=== PATIENT | male | born 1980 | race Caucasian/White ===

== ENCOUNTER 2016-09-01 20:01 | Emergency (ER) | payer OTHER ==
[2016-09-01 20:21] VITALS: BP 163/102; PULSE 100; TEMP 98.7; BMI 43.0
--- NOTE | 2016-09-01 21:59 | PDOC ---
History of Present Illness - General Chief Complaint: Redness To Affected Area Stated Complaint: RIGHT RING FINGERNAIL INFECTION Time Seen by Provider: 09/01/16 20:35 - History of Present Illness Initial Comments: This 35-year-old man with a history of diverticulitis but no other significant issues, presents with several-day history of progressive pain and swelling in the area around the fingernail of his right ring finger. Patient has a history of biting his nails and has had cuticle infections in the past but has never needed antibiotics or drainage of the area. A few days ago, patient noted swelling and redness around right fourth fingernail. He soaked it in warm water but noted increasing pain and whitish coloration of the area today. Patient has no history of wound healing problems or immunocompromised. He denies resistant organism infection or colonization. 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 Patient is right hand dominant. He denies current medications ALLERGIES: Ciprofloxacin/shellfish Past History - Past Medical History Allergies/Adverse Reactions: Allergies Allergy/AdvReac Type Severity Reaction Status Date / Time ciprofloxacin [From Cipro] Allergy Intermediate Nausea Verified 09/01/16 20:03 ciprofloxacin HCl Allergy Intermediate Nausea Verified 09/01/16 20:03 [From Cipro] Shellfish Allergy Swelling Verified 09/01/16 20:03 Home Medications: Ambulatory Orders Clindamycin [Cleocin -] 300 mg PO TID #15 capsule 09/01/16 GI Disorders: Yes (DIVERTICULITIS) - Immunization History Immunization Up to Date: Yes - Psycho/Social/Smoking Cessation Hx Anxiety: No Suicidal Ideation: No Smoking Status: No Smoking History: Never smoked Have you smoked in the past 12 months: No Number of Cigarettes Smoked Daily: 0 Hx Alcohol Use: No Drug/Substance Use Hx: No Substance Use Type: None Review of Systems - Review of Systems Able to Perform ROS?: Yes Comments:: 12 point review of systems is negative except for what is noted in the history of present illness *Physical Exam - Vital Signs Last Vital Signs Temp Pulse Resp BP Pulse Ox 98.7 F 100 H 18 163/102 99 09/01/16 20:02 09/01/16 20:02 09/01/16 20:02 09/01/16 20:02 09/01/16 20:02 - Physical Exam Comments: GENERAL: Adult male, alert and oriented 3, in no acute distress HEAD: Normal with no signs of trauma. EYES: PERRLA, EOMI, sclera anicteric, conjunctiva clear. ENT: Ears normal, nares patent, oropharynx clear without exudates. Moist mucous membranes. NECK: Normal range of motion, supple without lymphadenopathy, JVD, or masses. LUNGS: Breath sounds equal, clear to auscultation bilaterally. No wheezes, and no crackles. HEART:Regular rate and rhythm, normal S1 and S2 without murmur, rub or gallop. ABDOMEN:.normal bowel sounds No guarding,tenderness or rebound.No masses No distention. EXTREMITIES: Right handring finger: Moderately tender, moderately fluctuant 1 cm region of the ulnar aspect of the emmanuelle-ungual area. No pain on passive or active movement of the finger; no lymphangitic streaking Extremity exam otherwise normal NEUROLOGICAL: Cranial nerves II through XII grossly intact. Normal speech. No focal neurological deficits. MUSCULOSKELETAL: Back non-tender to palpation, no CVA tenderness SKIN: Warm, Dry, normal turgor, no rashes or lesions noted. Procedures - Incision and Drainage I&D Site: Right: Paronychia (ring finger) Betadine cleansed: No (Hibiclens/ethanol) Anesthesia: 1% Lidocaine Volume(ml): 1 Blade Size: 11 Attempts: 1 Iodinated Packin/4 in Complications: none Dressing: Yes (sterile gauze/tube dressing) Progress: Area around paronychia cleansed with Hibiclens/abdominal; one at mL of 1% lidocaine infiltrated into the wound for anesthesia. Incision made with #11 blade with moderate purulent discharge followed by serosanguineous drainage. Wound irrigated with 20 mL of sterile normal saline and wound packed with quarter-inch iodinated packing. Sample of drainage sent for culture and sensitivity testing. Sterile gauze dressing applied to the wound followed by tube dressing; patient tolerated procedure well Medical Decision Making - Medical Decision Making As noted above this 35-year-old man with with no history of immunocompromise or resistant organism colonization/infection presents with paronychia of the right ring finger. Incision and drainage proceeded as noted above. The patient works in [employer] as a helicopter officer. He will be covered for MRSA organisms with clindamycin 300 mg 3 times a day for 5 days. Care of the wound discussed with the patient. He will take the packing out on september 03, approximately 36 hours after incision and drainage. After that, he should soak the area and use protective dressing as needed. The patient should not work tomorrow. He has the following days off and will restart work on September 07. *DC/Admit/Observation/Transfer Diagnosis at time of Disposition: Paronychia of right ring finger - Discharge Dispostion Disposition: HOME Condition at time of disposition: Stable - Prescriptions Prescriptions: Clindamycin [Cleocin -] 300 mg PO TID #15 capsule - Referrals Referrals: Fausto Saeed MD [Primary Care Provider] - 1 week - Patient Instructions Printed Discharge Instructions: DI for Paronychia Additional Instructions: Keep original dressing in place, dry, for the next 36 hours Can remove packing with original dressing on Friday() a.m. Soak finger in warm water twice a day for 3 days after removing dressing Can use protective Band-Aid as needed in finger Clindamycin 300 mg 3 times a day for 5 days No work until September 07 Return to ER if area becomes more swollen/painful/red Follow-up with Dr. Cespedes within 1 week - Post Discharge Activity Work/School Note: Back to Work
[2016-09-01] MEDS ORDERED: CLINDAMYCIN HCL 300 MG CAPSULE PO ONE (22:50)
[2016-09-01] MEDS ORDERED: CLINDAMYCIN HCL 150 MG CAPSULE (FP) ONE (22:53)
[2016-09-01] MEDS ORDERED: DIPHTH,PERTUSS(ACELL),TET 0.5 ML DISP.SYRIN IM ONE (22:55)
== END 2016-09-01 23:01 | disposition home or self-care (01) ==
LOC: FER 20:01
PROC: 3E0233Z Introduction of Anti-inflammatory into Muscle, Percutaneous Approach (ICD-10-PCS; principal; 2016-09-01)
PROC: 3E023NZ Introduction of Analgesics, Hypnotics, Sedatives into Muscle, Percutaneous Approach (ICD-10-PCS; 2016-09-01)
DX: M54.32 Sciatica, left side (principal); G89.29 Other chronic pain
CPT/HCPCS: 87070; 87186; 87205; 90715; 99281-25

== ENCOUNTER 2016-12-16 18:49 | Emergency (ER) | payer OTHER ==
[2016-12-16 18:57] VITALS: PULSE 91; TEMP 98.7; BMI 43.8
--- NOTE | 2016-12-16 19:00 | PDOC ---
History of Present Illness - General History Source: Patient Exam Limitations: No Limitations - History of Present Illness Initial Comments: 12/16/16 19:24 The patient is a 36 year old male, with no significant past medical history, who presents to the emergency department complaining of a sore throat for approximately 2 days. The patient reports his throat pain radiates into his ears. He reports a TMax of 101.4F approximately 2 days ago. Patient reports he is concerned he has strep, because his niece was diagnosed with it today. He denies any chills, cough, headache, or dizziness. He denies chest pain, shortness of breath, diaphoresis, or palpitations. He denies any recent travel. PAST MEDICAL HISTORY: no significant history PAST SURGICAL HISTORY: no significant history FAMILY HISTORY: no pertinent history SOCIAL HISTORY: Pt lives with family and is employed. Non smoker. No ETOH or drug use. MEDICATIONS: reviewed ALLERGIES: Ciprofloxacin, ciproflixacin HCl, Shellfish General: Yes: +fever. No chills, no weakness, no weight loss HEENT: Yes: +sore throat, +ear pain. No change in vision. CardioVascular: No chest pain or shortness of breath Respiratory:No cough, or wheezing. Gastrointestinal: no nausea, vomiting, diarrhea or constipation, No rectal bleeding Genitourinary: No dysuria, hematuria, or frequency Musculoskeletal: No joint or muscle pain or swelling Neurologic: No headache, vertigo, dizziness or loss of consciousness Psychiatric: nor depression Skin: No rashes or easy bruising Endocrine: no increased thirst or abnormal weight change Allergic: no skin or latex allergy All other systems reviewed and normal GENERAL: The patient is awake, alert, and fully oriented, in no acute distress. HEAD: Normal with no signs of trauma. EYES: Pupils equal, round and reactive to light, extraocular movements intact, sclera anicteric, conjunctiva clear. THROAT: Erythema of the posterior nasopharynx. No exudates noted. Bilateral submandibular lymphadenopathy Tonsils normal. NECK: Bilateral submandibular lymphadenopathy Supple, no meningeal signs CHEST: Nontender to palpation EXTREMITIES: Normal range of motion, no edema. NEUROLOGICAL: Normal speech, normal gait. PSYCH: Normal mood, normal affect. SKIN: Warm, Dry, normal turgor, no rashes or lesions noted. <Brock Olguin - Last Filed: 12/16/16 19:24> - General History Source: Patient Exam Limitations: No Limitations - History of Present Illness Initial Comments: 12/16/16 19:42 A portion of this note was documented by scribe services under my direction. I have reviewed the details of the note, within reason, and agree with the documentation. The case summary and management plan written by me. Assessment and plan: This is a 36-year-old male who comes in complaining of 2 days of fever and sore throat. Patient had a rapid strep done here in the emergency room that was negative for strep pharyngitis. Patient was given a diagnosis of viral pharyngitis and told to follow-up with his primary care doctor but also use infectious precautions as he has an infant child at home and even if it's viral it is contagious. <Rebeca Moran I - Last Filed: 12/16/16 19:43> - General Chief Complaint: Sore Throat Stated Complaint: SORE THROAT Time Seen by Provider: 12/16/16 18:59 Past History <Brock Olguin - Last Filed: 12/16/16 19:24> - Past Medical History GI Disorders: Yes (DIVERTICULITIS) - Immunization History TDAP Vaccination: No Immunization Up to Date: Yes - Psycho/Social/Smoking Cessation Hx Anxiety: No Suicidal Ideation: No Smoking Status: No Smoking History: Never smoked Have you smoked in the past 12 months: No Number of Cigarettes Smoked Daily: 0 Information on smoking cessation initiated: No Hx Alcohol Use: (occasional) Drug/Substance Use Hx: No Substance Use Type: None <Rebeca Moran I - Last Filed: 12/16/16 19:43> - Past Medical History Allergies/Adverse Reactions: Allergies Allergy/AdvReac Type Severity Reaction Status Date / Time ciprofloxacin [From Cipro] Allergy Intermediate Nausea Verified 12/16/16 19:22 ciprofloxacin HCl Allergy Intermediate Nausea Verified 12/16/16 19:22 [From Cipro] Shellfish Allergy Swelling Verified 12/16/16 19:22 Home Medications: Ambulatory Orders Ibuprofen 600 mg PO ASDIR PRN 12/16/16 *Physical Exam - Vital Signs Last Vital Signs Temp Pulse Resp BP Pulse Ox 98.7 F 91 H 18 168/100 97 12/16/16 18:50 12/16/16 18:50 12/16/16 18:50 12/16/16 19:12 12/16/16 18:50 <Brock Olguin - Last Filed: 12/16/16 19:24> - Vital Signs Last Vital Signs Temp Pulse Resp BP Pulse Ox 98.7 F 91 H 18 179/110 97 12/16/16 18:50 12/16/16 18:50 12/16/16 18:50 12/16/16 18:50 12/16/16 18:50 <Rebeca Moran I - Last Filed: 12/16/16 19:43> ED Treatment Course - ADDITIONAL ORDERS Additional order review: 12/16/16 19:04 Group A Strep Rapid Antigen - Final Throat <Brock Olguin - Last Filed: 12/16/16 19:24> *DC/Admit/Observation/Transfer - Attestations Scribe Attestion: 12/16/16 19:24 Documentation prepared by Brock Olguin, acting as bilingual medical assistant for Rebeca Moran MD. <Brock Olguin - Last Filed: 12/16/16 19:24> - Discharge Dispostion Admit: No <Rebeca Moran I - Last Filed: 12/16/16 19:43> Diagnosis at time of Disposition: Viral pharyngitis - Discharge Dispostion Disposition: HOME Condition at time of disposition: Stable - Referrals Referrals: Fausto Saeed MD [Primary Care Provider] - - Patient Instructions Additional Instructions: your screen for strep was negative however there is still a has ability that the culture could come back positive. The culture will take approximately 2 days to come back. In the meantime assume that you may be infectious even if it is a viral pharyngitis and take it necessary precautions. Return to the emergency department immediately with ANY new, persistent or worsening symptoms. Continue any medications as previously prescribed by your physician. You should follow up with your primary doctor as soon as possible regarding today's emergency department visit. . Please make sure your doctor reviews the results of your emergency evaluation. Thank you for coming to the Emergency Department today for your care. It was a pleasure to see you today. Please note that your evaluation is INCOMPLETE until you follow-up with your doctor.
[2016-12-16 19:13] VITALS: BP 168/100
== END 2016-12-16 19:40 | disposition home or self-care (01) ==
LOC: FER 18:49
DX: J02.8 Acute pharyngitis due to other specified organisms (principal); B97.89 Other viral agents as the cause of diseases classified elsewhere; K57.92 Diverticulitis of intestine, part unspecified, without perforation or abscess without bleeding
CPT/HCPCS: 87070; 87430; 99282-25

== ENCOUNTER 2018-05-02 15:23 | Emergency (ER) | payer OTHER ==
[2018-05-02 15:26] VITALS: BMI 43.4
--- NOTE | 2018-05-02 15:34 | PDOC ---
History of Present Illness - General Chief Complaint: Cold Symptoms Stated Complaint: SINUS CONGESTION Time Seen by Provider: 05/02/18 15:32 History Source: Patient Exam Limitations: No Limitations Past History - Past Medical History Allergies/Adverse Reactions: Allergies Allergy/AdvReac Type Severity Reaction Status Date / Time ciprofloxacin [From Cipro] Allergy Intermediate Nausea Verified 05/02/18 15:23 ciprofloxacin HCl Allergy Intermediate Nausea Verified 05/02/18 15:23 [From Cipro] Shellfish Allergy Swelling Verified 05/02/18 15:23 Home Medications: Ambulatory Orders Amox-Tr/K Cl [Augmentin - 875Mg Tablet] 1 tab PO BID #14 tablet 05/02/18 Fluticasone Prop 0.05% Nasal [Flonase -] 1 - 2 spray NS DAILY #1 spray.pump Lisinopril [Prinivil] 10 mg PO DAILY 05/02/18 Loratadine [Claritin -] 10 mg PO DAILY #30 tablet 05/02/18 Meclizine HCl [Dramamine Less Drowsy] 25 mg PO DAILY PRN #14 tablet 05/02/18 Methylprednisolone [Medrol Dose Eduardo] 4 mg PO ASDIR #21 tablet 05/02/18 Metoprolol Succinate [Toprol Xl] 25 mg PO DAILY 05/02/18 COPD: No GI Disorders: Yes (DIVERTICULITIS) - Immunization History TDAP Vaccination: No Immunization Up to Date: Yes - Suicide/Smoking/Psychosocial Hx Smoking Status: No Smoking History: Never smoked Have you smoked in the past 12 months: No Number of Cigarettes Smoked Daily: 0 Hx Alcohol Use: Yes (ONCE A MONTH) Drug/Substance Use Hx: No Substance Use Type: None *Physical Exam - Vital Signs Last Vital Signs Temp Pulse Resp BP Pulse Ox 0/0 L 05/02/18 15:23 Moderate Sedation - Procedure Monitoring Vital Signs: Procedure Monitoring Vital Signs Temperature Pulse Rate Respiratory Rate Blood Pressure 0/0 L 05/02/18 15:23 O2 Sat by Pulse Oximetry (%) *DC/Admit/Observation/Transfer Diagnosis at time of Disposition: Sinusitis Qualifiers: Sinusitis location: unspecified location Chronicity: unspecified Qualified Code (s): J32.9 - Chronic sinusitis, unspecified - Discharge Dispostion Disposition: HOME Condition at time of disposition: Stable - Prescriptions Prescriptions: Amox-Tr/K Cl [Augmentin - 875Mg Tablet] 1 tab PO BID #14 tablet Fluticasone Prop 0.05% Nasal [Flonase -] 1 - 2 spray NS DAILY #1 spray.pump Loratadine [Claritin -] 10 mg PO DAILY #30 tablet Meclizine HCl [Dramamine Less Drowsy] 25 mg PO DAILY PRN #14 tablet PRN Reason: Vertigo Methylprednisolone [Medrol Dose Eduardo] 4 mg PO ASDIR #21 tablet - Referrals [place] [facility] [place] [facility] [place]] Michael Nation MD [Staff Physician] - - Patient Instructions Printed Discharge Instructions: DI for Sinusitis Additional Instructions: you were seen for sinusitis. please take your medications prescribed to you as directed. please follow up with your primary medical doctor or the Internal medicine group referred to you within 1 week after discharge. please follow up with the ENT physician Dr. Nation within 1 week for follow up care and management. please return to the emergency department if you have worsening symptoms or new concerning symptoms such as uncontrollable nausea and vomiting, focal neurological deficits, and fever/chills with neck stiffness. thank you. - Post Discharge Activity Forms/Work/School Notes: Back to Work
--- NOTE | 2018-05-02 15:35 | PDOC ---
Attending Attestation - Resident Resident Name: Emerson Johnson - ED Attending Attestation I have performed the following: I have examined & evaluated the patient, The case was reviewed & discussed with the resident, I agree w/resident's findings & plan - HPI HPI: 05/02/18 15:35 37 up F here c/o cough cold like sxs and nasal congestions. states he had a cough and congestion few weeks ago. cough impoved, but congestions got worse. also describing a vertigo sensation earlier today when yawning, heard a pop in ear felt vertigo and nausea. yesterday had with head turning quickly. no f/c no cough now. no rash. has not seen an ENT recently but many years ago he did. no change to speech or gait. no other complaints. 05/02/18 16:06 - Physicial Exam PE: 05/02/18 16:08 awake alert lungs clear bilaterally heart rrr no mrg. bilat sinus turbinate enlargement, right sinus tenderness. bilat TM with serous effusion. nuero alert oriented x 3. finger to nose normal. strength 5/5. skin warm and dry. negative romberg. gait normal speech clear. - Medical Decision Making 05/02/18 16:10 differential sinus congestion. allergic vs. viral and secondary sinusitis. due to prolonged course. will treat with augmenetin, steroids, and meclizine for vertigo. will refer to [facility] DR Nation for ENT. recomend flonase and claritin also.
[2018-05-02] MEDS ORDERED: LORATADINE 10 MG TABLET PO ONE (15:51)
[2018-05-02] MEDS ORDERED: LORATADINE 10 MG TABLET ONE (15:52)
[2018-05-02] MEDS ORDERED: IBUPROFEN 600 MG TABLET (FP) PO ONE ×2 (15:52→15:54)
[2018-05-02 15:58] VITALS: BP 148/93; PULSE 84; TEMP 97.7
[2018-05-02] MEDS ORDERED: MECLIZINE HCL 25 MG TABLET (FP) PO ONE (16:04)
[2018-05-02] MEDS ORDERED: MECLIZINE HCL 25 MG TABLET (FP) ONE (16:06)
[2018-05-02] MEDS ORDERED: PSEUDOEPHEDRINE HCL 30 MG TABLET ONE (16:06)
[2018-05-02] MEDS ORDERED: PSEUDOEPHEDRINE HCL 30 MG TABLET PO ONE (16:15)
== END 2018-05-02 16:38 | disposition home or self-care (01) ==
LOC: FER 15:23
DX: J32.9 Chronic sinusitis, unspecified (principal)
CPT/HCPCS: 99281-25

== ENCOUNTER 2018-07-16 09:01 | Inpatient (IN) | payer OTHER ==
[2018-07-03 10:21] VITALS: BMI 41.5
--- NOTE | 2018-07-16 08:03 | HP ---
Admitting History and Physical - Admission Chief Complaint: left hip osteoarthritis x years History of Present Illness: 37 year old male presents in regard to his left hip. Long-standing history of left hip osteoarthritis. Patient complains of pain, limited range of motion, difficulty ambulating, and difficulty with activities of daily living. Patient has failed conservative treatment options including PO medications, activity modification, injections, and exercise programs. At this point, patient like to proceed with surgical intervention-left total hip arthroplasty MAKOplasty. - Past Medical History Cardiovascular: Yes: HTN - Past Surgical History Additional Past Surgical History: See written history and physical. - Smoking History Smoking history: Never smoked Have you smoked in the past 12 months: No Aproximately how many cigarettes per day: 0 - Alcohol/Substance Use Hx Alcohol Use: Yes (ONCE A MONTH) Home Medications - Allergies Allergies/Adverse Reactions: Allergies Allergy/AdvReac Type Severity Reaction Status Date / Time ciprofloxacin [From Cipro] Allergy Intermediate Nausea Verified 07/03/18 10:09 ciprofloxacin HCl Allergy Intermediate Nausea Verified 07/03/18 10:09 [From Cipro] Shellfish Allergy Swelling Verified 07/03/18 10:09 - Home Medications Home Medications: Ambulatory Orders Lisinopril [Prinivil] 10 mg PO DAILY 05/02/18 Meclizine HCl [Dramamine Less Drowsy] 25 mg PO DAILY PRN #14 tablet 05/02/18 Metoprolol Succinate [Toprol Xl] 25 mg PO DAILY 05/02/18 Diclofenac Sodium 75 mg PO BID 07/03/18 Hydrocodone/Acetaminophen [Hydrocodone-Acetamin 5-325 mg] 2 each PO HS PRN 07/03 Ibuprofen 600 mg PO ASDIR PRN 07/03/18 Review of Systems - Review of Systems Musculoskeletal: reports: Decreased ROM (left hip), Joint Pain (left hip) Physical Examination Constitutional: Yes: Well Nourished, No Distress Eyes: Yes: Conjunctiva Clear HENT: Yes: Atraumatic Neck: Yes: Supple Cardiovascular: Yes: Regular Rate and Rhythm Respiratory: Yes: Regular Gastrointestinal: Yes: Soft ...Rectal Exam: Yes: Deferred Musculoskeletal: Yes: Joint Stiffness (left hip), Joint Swelling (left hip) Assessment/Plan 37 year old male presents in regard to his left hip. Long-standing history of left hip osteoarthritis. Patient complains of pain, limited range of motion, difficulty ambulating, and difficulty with activities of daily living. Patient has failed conservative treatment options including PO medications, activity modification, injections, and exercise programs. At this point, patient like to proceed with surgical intervention-left total hip arthroplasty MAKOplasty. Pros , cons, risks, benefits, and alternatives of a left total hip arthroplasty MAKOplasty were discussed with the patient at length. Patient confirms his understanding and consents to proceed with a left total hip arthroplasty MAKOplasty.
[~2018-07-16 09:01] MED LIST: CEFAZOLIN 2 GM in DEXTROSE 5%-WATER - 50 ML IVPB ONE; CELECOXIB 200 MG CAPSULE PO ONE; GABAPENTIN 300 MG CAPSULE (FP) PO ONE; PANTOPRAZOLE 40 MG TABLET (FP) PO ONE; ROPIVICAINE 0.2%/MORPH PF/KETOROLAC - 51ML DISP.SYRINGE IA ONE; TRANEXAMIC ACID 1000 MG/10 ML VIAL IVPUSH ONE; oxyCODONE HCL 10 MG SUSTAINED ACTING TABLET PO ONE
[2018-07-16] MEDS ORDERED: MIDAZOLAM HCL 2 MG/2 ML SINGLE DOSE VIAL ONE ×3 (12:16→16:41)
[2018-07-16] MEDS ORDERED: BUPIVACAINE HCL/PF (5 MG/ML) 30 ML VIAL IJ ONE (12:16)
[2018-07-16] MEDS ORDERED: EPINEPHrine/PF 1 MG/1 ML (1:1,000) AMPULE ONE (12:16)
[2018-07-16] MEDS ORDERED: ceFAZolin SODIUM 1 GM VIAL ONE ×3 (12:22→18:37)
[2018-07-16] MEDS ORDERED: TRANEXAMIC ACID 1000 MG/10 ML VIAL ONE ×3 (12:22→16:27)
[2018-07-16] MEDS ORDERED: VANCOMYCIN 1,000 MG VIAL (RESTRICTED TO ID ONLY) ONE (12:23)
[2018-07-16] MEDS ORDERED: BUPIVACAINE HCL/PF 0.5% (5MG/ML) 10 ML VIAL ONE (13:16)
[2018-07-16] MEDS ORDERED: PROPOFOL 20 ML ONE ×3 (13:25→15:24)
[2018-07-16] MEDS ORDERED: ePHEDrine SULFATE 50 MG/1 ML AMPULE ONE (13:57)
[2018-07-16] MEDS ORDERED: PHENYLEPHRINE HCL 10 MG/1 ML SINGLE DOSE VIAL ONE (14:14)
[2018-07-16] MEDS ORDERED: ROPIVICAINE 0.2%/MORPH PF/KETOROLAC - 51ML DISP.SYRINGE IA ONE ×2 (14:26→16:50)
[2018-07-16] MEDS ORDERED: TRANEXAMIC ACID 1000 MG/10 ML VIAL IVPUSH ONE (15:36)
[2018-07-16] MEDS ORDERED: KETAMINE HCL 200 MG/20 ML VIAL ONE (16:27)
[2018-07-16] MEDS ORDERED: ONDANSETRON 4 MG/2 ML VIAL IVPUSH PRN ×2 (16:32→17:52)
[2018-07-16] MEDS ORDERED: ACETAMINOPHEN 1000 MG/100 ML VIAL (NON FORMULARY) IVPB ONE ×3 (16:33→18:15)
[2018-07-16] MEDS ORDERED: VANCOMYCIN 1,000 MG VIAL (RESTRICTED TO ID ONLY) IVPB ONE (16:34)
[2018-07-16] MEDS ORDERED: LACTATED RINGERS SOLUTION 1,000 ML IV SCH ×2 (16:45→18:00)
[2018-07-16] MEDS ORDERED: MECLIZINE HCL 25 MG TABLET (FP) PO PRN (17:49)
--- NOTE | 2018-07-16 17:49 | OP ---
Operative Note - Note: Operative Date: 07/16/18 Pre-Operative Diagnosis: left hip OA Operation: left FELIX KEVIN Post-Operative Diagnosis: Same as Pre-op Surgeon: Napoleon [employer] Supervisor: Ewa Huang Anesthesia: Spinal Estimated Blood Loss (mls): 500
[2018-07-16] MEDS ORDERED: MAGNESIUM HYDROX 2400MG/30ML ORAL SUSPENSION 30 ML CUP PO PRN (17:52)
[2018-07-16] MEDS ORDERED: MAG HYDROX/AL HYDROX/SIMETH 30 ML UNIT-DOSE CUP PO PRN (17:52)
[2018-07-16] MEDS ORDERED: traMADol HCL 50 MG TABLET ONE (17:55)
[2018-07-16] MEDS ORDERED: ACETAMINOPHEN INJECTION 100 ML IVPB ONE (17:55)
[2018-07-16] MEDS ORDERED: KETOROLAC TROMETHAMINE 30 MG/1 ML VIAL ONE (17:55)
[2018-07-16] MEDS ORDERED: CEFAZOLIN 2 GM/D5W 2 GM/50 ML ML IVPB SCH (18:00)
[2018-07-16] MEDS: KETOROLAC TROMETHAMINE 30 MG/1 ML VIAL IVPUSH SCH (18:10)
[2018-07-16] MEDS: traMADol HCL 50 MG TABLET PO SCH (18:19)
[2018-07-16] MEDS ORDERED: ceFAZolin SODIUM 1 GM VIAL IVPB ONE (18:40)
--- NOTE | 2018-07-16 19:23 | CONSULT ---
Consultation: REQUESTING PROVIDER: Dr. Napoleon Horton CONSULT REQUEST: We have been asked to medically evaluate and treat this patient post-operatively. HISTORY OF PRESENT ILLNESS: 37 year-old male with a PMH significant for HTN, diverticulitis x 5 episodes ( hospitalized 2013, 2015) and left hip osteoarthritis s/p left total hip arthroplasty MAKOplasty today with Dr. Napoleon Horton. Advised by anesthesia team patient had periods of apnea and desatted to 70s. Patient has not been formally diagnosed with sleep apnea but was recently told by his GI doctor that he had apneic periods during colonoscopy. Patient has plans to undergo a sleep study post-operatively. Of note, patient's 6 year-old son has severe sleep apnea on CPAP at home. REVIEW OF SYSTEMS: CONSTITUTIONAL: Absent: fever, chills, diaphoresis, generalized weakness, malaise, loss of appetite, weight change HEENT: Absent: rhinorrhea, nasal congestion, throat pain, throat swelling, difficulty swallowing, mouth swelling, ear pain, eye pain, visual changes CARDIOVASCULAR: Absent: chest pain, syncope, palpitations, irregular heart rate, lightheadedness , peripheral edema RESPIRATORY: Absent: cough, shortness of breath, dyspnea with exertion, orthopnea, wheezing, stridor, hemoptysis GASTROINTESTINAL: Absent: abdominal pain, abdominal distension, nausea, vomiting, diarrhea, constipation, melena, hematochezia GENITOURINARY: Absent: dysuria, frequency, urgency, hesitancy, hematuria, flank pain, genital pain MUSCULOSKELETAL: +left hip pain Absent: myalgia, arthralgia, joint swelling, back pain, neck pain SKIN: Absent: rash, itching, pallor HEMATOLOGIC/IMMUNOLOGIC: Absent: easy bleeding, easy bruising, lymphadenopathy, frequent infections ENDOCRINE: Absent: unexplained weight gain, unexplained weight loss, heat intolerance, cold intolerance NEUROLOGIC: Absent: headache, focal weakness or paresthesias, dizziness, unsteady gait, seizure, mental status changes, bladder or bowel incontinence PSYCHIATRIC: Absent: anxiety, depression, suicidal or homicidal ideation, hallucinations. PHYSICAL EXAMINATION Vital Signs - 24 hr 07/16/18 07/16/18 07/16/18 09:35 17:43 17:45 Temperature 97.6 F 98.1 F Pulse Rate 82 85 89 Respiratory 18 16 16 Rate Blood Pressure 153/95 83/54 L 88/56 L O2 Sat by Pulse 93 L 100 Oximetry (%) 07/16/18 07/16/18 07/16/18 17:50 17:55 18:00 Temperature Pulse Rate 79 81 79 Respiratory 16 16 16 Rate Blood Pressure 77/49 L 91/53 L 84/48 L O2 Sat by Pulse 92 L 89 L 95 Oximetry (%) 07/16/18 07/16/18 07/16/18 18:15 18:30 18:37 Temperature Pulse Rate 77 83 83 Respiratory 16 18 18 Rate Blood Pressure 113/44 L 110/58 L 110/58 L O2 Sat by Pulse 97 98 Oximetry (%) 07/16/18 18:55 Temperature 98.5 F Pulse Rate 81 Respiratory 16 Rate Blood Pressure 102/57 L O2 Sat by Pulse 98 Oximetry (%) GENERAL: Awake, alert, and fully oriented, in no acute distress. HEAD: Normal with no signs of trauma. EYES: Pupils equal, round and reactive to light, extraocular movements intact, sclera anicteric, conjunctiva clear. No lid lag. EARS, NOSE, THROAT: Ears normal, nares patent, oropharynx clear without exudates. Moist mucous membranes. NECK: Normal range of motion, supple without lymphadenopathy, JVD, or masses. LUNGS: Breath sounds equal, clear to auscultation bilaterally. No wheezes, and no crackles. No accessory muscle use. HEART: Regular rate and rhythm, normal S1 and S2 without murmur, rub or gallop. ABDOMEN: Soft, nontender, not distended, normoactive bowel sounds, no guarding, no rebound, no masses. No hepatomegaly or splenomegaly. UPPER EXTREMITIES: 2+ pulses, warm, well-perfused. No cyanosis. No clubbing. Cap refill <2 seconds. No peripheral edema. LOWER EXTREMITIES: 2+ pulses, warm, well-perfused. No calf tenderness. No peripheral edema. LLE: Left hip surgical dressing c/d/i; no surrounding erythema , warmth, fluctuance NEUROLOGICAL: Cranial nerves II-XII intact. Normal speech. Active Medications Generic Name Dose Route Start Last Admin Trade Name Freq PRN Reason Stop Dose Admin Al Hydroxide/Mg Hydroxide 30 ml 07/16/18 17:52 Mylanta Oral Suspension - PO Q4H PRN DYSPEPSIA Ascorbic Acid 500 mg 07/16/18 22:00 Vitamin C - PO BID RACHELLE Aspirin 325 mg 07/17/18 08:00 Asa - PO DAILY@0800 [facility] Celecoxib 200 mg 07/16/18 22:00 Celebrex - PO BID [facility] Dexamethasone Sodium Phosphate 10 mg 07/17/18 00:00 Decadron Injection - IVPB 07/17/18 00:01 ONCE ONE Fentanyl 50 mcg 07/16/18 16:32 Sublimaze Injection - IVPUSH [id number] PRN PAIN-PACU ORDER X 4 DOSES ONLY Gabapentin 300 mg 07/16/18 22:00 Neurontin - PO 07/19/18 21:59 BID [facility] Cefazolin Sodium/Dextrose 2 gm in 50 mls @ 100 mls/hr 07/16/18 18:00 Ancef 2 Gm Premixed Ivpb - IVPB 07/17/18 02:29 Q8H-IV [facility] Lactated Ringer's 1,000 mls @ 125 mls/hr 07/16/18 18:00 Lactated Ringers Solution IV 07/17/18 06:00 ASDIR [facility] Ketorolac Tromethamine 30 mg 07/16/18 18:30 07/16/18 18:10 Toradol Injection - IVPUSH 07/17/18 12:31 30 mg Q6H [facility] Administration Lisinopril 10 mg 07/17/18 10:00 Prinivil PO DAILY [facility] Magnesium Hydroxide 30 ml 07/16/18 17:52 Milk Of Magnesia - PO DAILY PRN CONSTIPATION Meclizine HCl 25 mg 07/16/18 17:49 Antivert - PO DAILY PRN VERTIGO Metoprolol Succinate 25 mg 07/17/18 10:00 Toprol Xl - PO DAILY [facility] Multivitamins/Minerals/Vitamin C 1 tab 07/17/18 10:00 Tab-A-Vit - PO DAILY [facility] Ondansetron HCl 4 mg 07/16/18 16:32 Zofran Injection IVPUSH Q6H PRN NAUSEA AND/OR VOMITING Ondansetron HCl 4 mg 07/16/18 17:52 Zofran Injection IVPUSH Q6H PRN NAUSEA Oxycodone HCl 5 mg 07/16/18 16:33 Roxicodone - PO Q3H PRN PAIN LEVEL 1-5 Oxycodone HCl 10 mg 07/16/18 16:33 Roxicodone - PO Q3H PRN PAIN LEVEL 6-10 Pantoprazole Sodium 40 mg 07/17/18 10:00 Protonix - PO DAILY [facility] Senna/Docusate Sodium 1 tablet 07/16/18 22:00 Pericolace - PO BID [facility] Tramadol HCl 50 mg 07/16/18 18:30 07/16/18 18:19 Ultram - PO 50 mg QID [facility] Administration ASSESSMENT/PLAN 37 year-old male with a PMH significant for HTN, diverticulitis, and left hip osteoarthritis s/p left total hip arthroplasty MAKOplasty. Left total hip arthroplasty FELIX plasty --POD #0 --perioperative antibiotics per surgery --pain management per surgery --ASA 325 mg daily --bowel regimen --incentive spirometry --no drains, no vazquez Sleep apnea of uncertain etiology --patient has had observed periods of cessation of breathing and hypoxia during anesthesia, one month ago during colonoscopy, and again today --BiPAP orders entered by anesthesia; discussed with respiratory --BiPAP whenever sleeping --continuous pulse oximetry, cardiac monitoring Hypertension --BP presently low; 500cc EBL; given 2.9L crystalloid in OR and PACU; give additional NS x 1L now --hold lisinopril, Toprol XL Diverticulitis --5 episodes (hospitalized 2012, 2014) --advised he should undergo elective surgery --presently stable FEN Fluids: NS x 1L; 100mL/hr Electrolytes: replete as indicated Nutrition: low sodium DVT prophylaxis: OOB, ambulation, SCDs, TEDs, ASA 325mg daily Physical therapy Dispo: We will continue to follow the patient. Thank you for this consultative opportunity. Visit type - Emergency Visit Emergency Visit: Yes ED Registration Date: 07/16/18 Care time: The patient presented to the Emergency Department on the above date and was hospitalized for further evaluation of their emergent condition. - New Patient This patient is new to me today: Yes Date on this admission: 07/16/18 - Critical Care Critical Care patient: No
[2018-07-16] MEDS ORDERED: SODIUM CHLORIDE 1,000 ML IV STA (20:00)
[2018-07-16] MEDS: GABAPENTIN 300 MG CAPSULE (FP) PO SCH (21:46)
[2018-07-16] MEDS: CELECOXIB 200 MG CAPSULE PO SCH (21:46)
[2018-07-16] MEDS: ASCORBIC ACID 500 MG TABLET (FP) PO SCH (21:47)
[2018-07-16] MEDS: SENNOSIDES/DOCUSATE COMBO (SENNA PLUS) TABLET (UD) PO SCH (21:47)
[2018-07-16] MEDS: oxyCODONE HCL 5 MG TABLET PO PRN ×2 (21:50→23:01)
[2018-07-17] MEDS ORDERED: DEXAMETHASONE SOD PHOSPHATE 10 MG/1 ML VIAL IVPB ONE
[2018-07-17] MEDS: KETOROLAC TROMETHAMINE 30 MG/1 ML VIAL IVPUSH SCH ×2 (00:07→06:33)
[2018-07-17] MEDS: ASPIRIN 325 MG TABLET PO SCH (08:05)
[2018-07-17 08:15] LABS: HEMATOCRIT 35.5 % (35.4-49); MCH 30.2 pg (25.7-33.7); MCHC 33.8 g/dl (32.0-35.9); MEAN CELL VOLUME 89.4 fl (80-96); MEAN PLT VOLUME 8.9 fl (7.5-11.1); PLATELET COUNT 176 K/MM3 (134-434); RBC 3.98 M/mm3 (4.00-5.60); RDW 12.4 % (11.9-15.9); WHITE BLOOD COUNT 12.7 K/mm3 (4.0-10.8)
[2018-07-17 08:21] LABS: ANION GAP 8 MMOL/L (8-16); BLOOD UREA NITROGEN 20 mg/dl (7-18); CALCIUM 8.4 mg/dl (8.5-10); CHLORIDE 101 mmol/L (98-107); CO2 26 mmol/L (21-32); CREATININE 1.1 mg/dl (0.55-1.3); GLUCOSE,RANDOM 162 mg/dl (74-106); POTASSIUM 4.7 mmol/L (3.5-5.1); SODIUM 135 mmol/L (136-145)
[2018-07-17] MEDS ORDERED: metoPROLOL SUCCINATE 25 MG TAB.SR.24H (FP) PO SCH (10:00)
[2018-07-17] MEDS ORDERED: LISINOPRIL 10 MG TABLET (FP) PO SCH (10:00)
[2018-07-17] MEDS: ASCORBIC ACID 500 MG TABLET (FP) PO SCH ×2 (10:05→21:17)
[2018-07-17] MEDS: CELECOXIB 200 MG CAPSULE PO SCH ×2 (10:20→21:17)
[2018-07-17] MEDS: SENNOSIDES/DOCUSATE COMBO (SENNA PLUS) TABLET (UD) PO SCH ×2 (10:20→21:17)
[2018-07-17] MEDS: GABAPENTIN 300 MG CAPSULE (FP) PO SCH ×2 (10:20→21:17)
[2018-07-17] MEDS: PANTOPRAZOLE 40 MG TABLET (FP) PO SCH (10:20)
[2018-07-17] MEDS: MULTIVITAMINS (DAILY MVI) TABLET (FP) PO SCH (10:25)
--- NOTE | 2018-07-17 11:07 | PN ---
Physical Exam: SUBJECTIVE: Patient seen and examined oob to chair. Tolerated BiPAP last night, able to wear mask all night. OBJECTIVE: Vital Signs Period Temp Pulse Resp BP Sys/Howell Pulse Ox Last 24 Hr 97.5 F-98.9 F 77-102 16-18 77-118/44-73 89-100 GENERAL: Awake, alert, and fully oriented, in no acute distress. LUNGS: Breath sounds equal, clear to auscultation bilaterally. No wheezes, and no crackles. No accessory muscle use. HEART: Regular rate and rhythm, normal S1 and S2 ABDOMEN: Soft, nontender, not distended UPPER EXTREMITIES: 2+ pulses, warm, well-perfused. No cyanosis. No clubbing. Cap refill <2 seconds. No peripheral edema. LOWER EXTREMITIES: 2+ pulses, warm, well-perfused. No calf tenderness. No peripheral edema. LLE: Left hip surgical dressing c/d/i; no surrounding erythema , warmth, fluctuance NEUROLOGICAL: Cranial nerves II-XII intact. Normal speech. Laboratory Results - last 24 hr 07/17/18 07/17/18 07:03 07:03 WBC 12.7 H RBC 3.98 L Hgb 12.0 Hct 35.5 D MCV 89.4 MCH 30.2 MCHC 33.8 RDW 12.4 Plt Count 176 MPV 8.9 Sodium 135 L Potassium 4.7 Chloride 101 Carbon Dioxide 26 Anion Gap 8 BUN 20 H Creatinine 1.1 Creat Clearance w eGFR 74.52 Random Glucose 162 H Calcium 8.4 L Active Medications Generic Name Dose Route Start Last Admin Trade Name Freq PRN Reason Stop Dose Admin Al Hydroxide/Mg Hydroxide 30 ml 07/16/18 17:52 Mylanta Oral Suspension - PO Q4H PRN DYSPEPSIA Ascorbic Acid 500 mg 07/16/18 22:00 07/16/18 21:47 Vitamin C - PO 500 mg BID RACHELLE Administration Aspirin 325 mg 07/17/18 08:00 Asa - PO DAILY@0800 RACHELLE Celecoxib 200 mg 07/16/18 22:00 07/16/18 21:46 Celebrex - PO 200 mg BID RACHELLE Administration Fentanyl 50 mcg 07/16/18 16:32 Sublimaze Injection - IVPUSH [id number] PRN PAIN-PACU ORDER X 4 DOSES ONLY Gabapentin 300 mg 07/16/18 22:00 07/16/18 21:46 Neurontin - PO 07/19/18 21:59 300 mg BID RACHELLE Administration Ketorolac Tromethamine 30 mg 07/16/18 18:30 07/17/18 06:33 Toradol Injection - IVPUSH 07/17/18 12:31 30 mg Q6H RACHELLE Administration Magnesium Hydroxide 30 ml 07/16/18 17:52 Milk Of Magnesia - PO DAILY PRN CONSTIPATION Multivitamins/Minerals/Vitamin C 1 tab 07/17/18 10:00 Tab-A-Vit - PO DAILY [facility] Ondansetron HCl 4 mg 07/16/18 16:32 07/16/18 19:53 Zofran Injection IVPUSH 4 mg Q6H PRN Administration NAUSEA AND/OR VOMITING Ondansetron HCl 4 mg 07/16/18 17:52 Zofran Injection IVPUSH Q6H PRN NAUSEA Oxycodone HCl 5 mg 07/16/18 16:33 07/16/18 23:01 Roxicodone - PO 5 mg Q3H PRN Administration PAIN LEVEL 1-5 Oxycodone HCl 10 mg 07/16/18 16:33 Roxicodone - PO Q3H PRN PAIN LEVEL 6-10 Pantoprazole Sodium 40 mg 07/17/18 10:00 Protonix - PO DAILY [facility] Senna/Docusate Sodium 1 tablet 07/16/18 22:00 07/16/18 21:47 Pericolace - PO 1 tablet BID RACHELLE Administration Tramadol HCl 50 mg 07/16/18 18:30 07/16/18 18:19 Ultram - PO 50 mg QID RACHELLE Administration ASSESSMENT/PLAN 37 year-old male with a PMH significant for HTN, diverticulitis, and left hip osteoarthritis s/p left total hip arthroplasty MAKOplasty. Left total hip arthroplasty FELIX plasty --POD #1 --perioperative antibiotics complete --pain management per surgery --ASA 325 mg daily --bowel regimen --incentive spirometry --no drains, no vazquez Sleep apnea of uncertain etiology --patient has had observed periods of cessation of breathing and hypoxia during anesthesia, one month ago during colonoscopy, and again during surgery --BiPAP orders entered by anesthesia; discussed with respiratory --BiPAP whenever sleeping --continuous pulse oximetry, cardiac monitoring when on BiPAP Hypertension --BP stable --resume lisinopril, Toprol XL Diverticulitis --5 episodes (hospitalized 2012, 2014) --advised he should undergo elective surgery --presently stable FEN Fluids: PO intake adequate Electrolytes: replete as indicated Nutrition: low sodium DVT prophylaxis: OOB, ambulation, SCDs, TEDs, ASA 325mg daily Physical therapy Dispo: We will continue to follow the patient. Thank you for this consultative opportunity. Visit type - Emergency Visit Emergency Visit: Yes ED Registration Date: 07/16/18 Care time: The patient presented to the Emergency Department on the above date and was hospitalized for further evaluation of their emergent condition. - New Patient This patient is new to me today: No - Critical Care Critical Care patient: No
--- NOTE | 2018-07-17 11:25 | CON.PULM ---
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 Patient complains of pain, limited range of motion, difficulty ambulating, and difficulty with activities of daily living. Patient has failed conservative treatment. Patient is s/p left hip surg, also has presumptive history of OSAS. He will have a psg as an outpatient via ENT. 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 No: AFIB Pulmonary: No: Asthma Gastrointestinal: No: Ascites Hepatobiliary: No: Cirrhosis Renal/: No: Renal Failure Heme/Onc: No: Anemia Psych: No: Addictions Musculoskeletal: Yes: Osteoarthritis - Alcohol/Substance Use Hx Alcohol Use: Yes (ONCE A MONTH) - Smoking History Smoking history: Never smoked Have you smoked in the past 12 months: No Aproximately how many cigarettes per day: 0 Home Medications - Allergies Allergies/Adverse Reactions: Allergies Allergy/AdvReac Type Severity Reaction Status Date / Time ciprofloxacin [From Cipro] Allergy Intermediate Nausea Verified 07/03/18 10:09 ciprofloxacin HCl Allergy Intermediate Nausea Verified 07/03/18 10:09 [From Cipro] Shellfish Allergy Swelling Verified 07/03/18 10:09 - Home Medications Home Medications: Ambulatory Orders Lisinopril [Prinivil] 10 mg PO DAILY 05/02/18 Meclizine HCl [Dramamine Less Drowsy] 25 mg PO DAILY PRN #14 tablet 05/02/18 Metoprolol Succinate [Toprol Xl] 25 mg PO DAILY 05/02/18 Diclofenac Sodium 75 mg PO BID 07/03/18 Hydrocodone/Acetaminophen [Hydrocodone-Acetamin 5-325 mg] 2 each PO HS PRN 07/03 Ibuprofen 600 mg PO ASDIR PRN 07/03/18 Family Disease History - Family Disease History Family History: Unremarkable Review of Systems - Review of Systems Constitutional: denies: Chills Eyes: denies: Blind Spots HENT: denies: Difficult Swallowing Neck: denies: Decreased ROM Cardiovascular: denies: Chest Pain Respiratory: reports: Other (apneic episodes witnessed, snoring). denies: SOB Gastrointestinal: reports: No Symptoms Genitourinary: reports: No Symptoms Physical Exam Vital Sings: Vital Signs Temperature 97.9 F 07/17/18 06:00 Pulse Rate 102 H 07/17/18 06:00 Respiratory Rate 18 07/17/18 06:00 Blood Pressure 111/73 07/17/18 06:00 O2 Sat by Pulse Oximetry (%) 97 07/17/18 06:00 Constitutional: Yes: Calm Eyes: Yes: EOM Intact HENT: Yes: Normocephalic Neck: Yes: Trachea Midline Cardiovascular: Yes: Regular Rate and Rhythm Respiratory: Yes: CTA Bilaterally Gastrointestinal: Yes: Abdomen, Obese Extremities: Yes: Other (s/p left hip wade jeanne) Edema: No Neurological: Yes: Alert Psychiatric: Yes: Alert Labs: CBC, BMP 07/17/18 07:03 07/17/18 07:03 Imaging - Results X-ray: Report Reviewed Problem List - Problems (1) SATINDER (obstructive sleep apnea) Code(s): G47.33 - OBSTRUCTIVE SLEEP APNEA (ADULT) (PEDIATRIC) (2) HTN (hypertension) Code(s): I10 - ESSENTIAL (PRIMARY) HYPERTENSION (3) History of total left hip arthroplasty Code(s): Z96.642 - PRESENCE OF LEFT ARTIFICIAL HIP JOINT Assessment/Plan DISCUSSED AT LENGTH OSAS AND CARDIAC RISKS IF LEFT UNTREATED DISCUSSED NEED FOR COMPLIANCE WITH ENT FOR SETTING UP PSG AN OUTPATIENT AND LIKELY NEED FOR NIPPV DISCUSSED INCREASED RISK OF VTE POST ORTHOPEDIC SURGERY AND NEED FOR COMPLIANCE FOR PREVENTATIVE MEASURES Santiago CUELLAR MD [facility]
--- NOTE | 2018-07-17 14:08 | PN ---
Progress Note (short form) - Note Progress Note: Anesthesiology 37 y.o. man POD#1 s/p left KEVIN with paravetebral block and spinal anesthesia Pt. is undergoing PT and is able to move with little difficulty. He feels well and pain is present but under control. He denies n/v or h/a. No overnight issues ; pt used CPAP ON for suspected SATINDER. VSS. 37 y.o. man with stable post-operative course. I d/w pt and to make sure to f/u re. SATINDER with his PCP. Continue post-op care as per primary team.
[2018-07-17] MEDS: traMADol HCL 50 MG TABLET PO SCH ×3 (17:13→21:17)
[2018-07-17] MEDS: oxyCODONE HCL 5 MG TABLET PO PRN (19:29)
--- NOTE | 2018-07-17 22:44 | PN ---
Progress Note (short form) - Note Progress Note: Pt seen and examined. Doing well. AVSS Selected Entries 07/17/18 22:00 Temperature 98.8 F Pulse Rate 106 H Respiratory 17 Rate Blood Pressure 119/66 O2 Sat by Pulse 96 Oximetry (%) Oxygen Delivery Room Air Method Laboratory Tests 07/17/18 07/17/18 07:03 07:03 WBC 12.7 H Hgb 12.0 Hct 35.5 D Plt Count 176 Sodium 135 L Potassium 4.7 Chloride 101 Carbon Dioxide 26 Anion Gap 8 BUN 20 H Creatinine 1.1 Creat Clearance w eGFR 74.52 Random Glucose 162 H Calcium 8.4 L Gen: NAD LLE: c/d/i, NVID A/P POD#1 s/p L KEVIN PT/OOB - WBAT LLE D/C home in AM
--- NOTE | 2018-07-18 00:01 | DS ---
Physical Examination Vital Signs: Vital Signs Temperature 98.8 F 07/17/18 22:00 Pulse Rate 106 H 07/17/18 22:00 Respiratory Rate 17 07/17/18 22:00 Blood Pressure 119/66 07/17/18 22:00 O2 Sat by Pulse Oximetry (%) 96 07/17/18 22:00 Labs: CBC, BMP 07/17/18 07:03 07/17/18 07:03 Discharge Summary Reason For Visit: LEFT HIP OSTEOARTHRITIS Current Active Problems HTN (hypertension) (Acute) History of total left hip arthroplasty (Acute) SATINDER (obstructive sleep apnea) (Acute) Osteoarthritis of left hip (Acute) Procedures: Principal: left FELIX KEVIN Hospital Course: Admitted for elective surgery. Procedure performed without complications. Pt received postoperative antibiotic prophylaxis and DVT ppx. Ambulated with physical therapy. Stable for discharge home with outpatient followup. Condition: Stable - Instructions Diet, Activity, Other Instructions: Dr Horton - Hip Replacement Instructions Keep the Aquacel dressing on until removed by Dr. Horton in 10-14 days - it is antibacterial and waterproof and you can shower with it on. Call the office for a follow-up appointment with Dr. Horton in 10-14 days. [phone] Take one Aspirin 325mg daily for 6 weeks to prevent blood clots in your legs. Take one Pantoprazole 40mg daily for 6 weeks to protect against heartburn and ulcers. Take Cephalexin (antibiotic) 3x/day for 10 days to help prevent skin infection. Take Celebrex 200mg twice daily for 30 days to reduce swelling and inflammation. Take a multivitamin, stool softener and extra Vitamin C supplement daily. For pain: *Mild pain (1-3/10): Take 1 Tramadol tablet every 4 hours as needed. Moderate pain (4-6/10): Take 1 Tramadol tablet and 1 Percocet tablet every 4 hours as needed. Severe pain (7-10/10): Take 1 Tramadol tablet and 2 Percocet tablets every 4 hours as needed. Activity: You can put as much weight on the operative leg as you want. For the first 6 weeks, all you need to do is walk around the house, go up/down stairs, and sit down/get up. After 6 weeks when everything is healed (and bone has grown into the implant) you will be sent for more intensive outpatient physical therapy. Always use a walker or cane for balance and to prevent falls. Expect to see swelling / bruising from the operative site all the way down to your toes. Wear the Compression stocking on the operative side during the day to minimize how much swelling there is in your foot/ankle. Don't wear the stocking at night. You don't have to wear the stocking on the other side. Disposition: VNS/HOME HEALTH CARE - Home Medications Comprehensive Discharge Medication List: Ambulatory Orders Lisinopril [Prinivil] 10 mg PO DAILY 05/02/18 Meclizine HCl [Dramamine Less Drowsy] 25 mg PO DAILY PRN #14 tablet 05/02/18 Metoprolol Succinate [Toprol Xl] 25 mg PO DAILY 05/02/18 Ascorbic Acid [Vitamin C -] 500 mg PO BID tablet 07/17/18 Aspirin [ASA -] 325 mg PO DAILY@0800 tablet 07/17/18 Celecoxib [CeleBREX -] 200 mg PO BID #60 capsule 07/17/18 Cephalexin Monohydrate [Keflex -] 500 mg PO TID #30 capsule 07/17/18 Multivitamins [Multivit ([facility] Formulary)] 1 tab PO DAILY tab 07/17/18 Oxycodone HCl/Acetaminophen [Percocet 5-325 mg Tablet] 1 - 2 tab PO Q4H PRN #60 tablet MDD 10 07/17/18 Pantoprazole Sodium [Protonix -] 40 mg PO DAILY #40 tablet.ec 07/17/18 Sennosides/Docusate Sodium [Pericolace -] 1 tablet PO BID tablet 07/17/18 traMADol HCL [Ultram -] 50 mg PO Q4H PRN #42 tablet MDD 6 07/17/18
[2018-07-18] MEDS: oxyCODONE HCL 5 MG TABLET PO PRN ×4 (00:48→09:57)
[2018-07-18 06:28] VITALS: BP 110/62; PULSE 102; TEMP 98.8
[2018-07-18] MEDS: ASPIRIN 325 MG TABLET PO SCH (08:28)
[2018-07-18] MEDS: traMADol HCL 50 MG TABLET PO SCH (09:10)
[2018-07-18] MEDS: CELECOXIB 200 MG CAPSULE PO SCH (09:12)
[2018-07-18] MEDS: GABAPENTIN 300 MG CAPSULE (FP) PO SCH (09:12)
[2018-07-18] MEDS: MULTIVITAMINS (DAILY MVI) TABLET (FP) PO SCH (09:13)
[2018-07-18] MEDS: SENNOSIDES/DOCUSATE COMBO (SENNA PLUS) TABLET (UD) PO SCH (09:13)
[2018-07-18] MEDS: PANTOPRAZOLE 40 MG TABLET (FP) PO SCH (09:13)
[2018-07-18] MEDS: ASCORBIC ACID 500 MG TABLET (FP) PO SCH (09:14)
[2018-07-18 09:23] LABS: HEMATOCRIT 31.3 % (35.4-49); HEMOGLOBIN 10.2 GM/dl (11.7-16.9); MCH 29.1 pg (25.7-33.7); MCHC 32.8 g/dl (32.0-35.9); MEAN CELL VOLUME 88.7 fl (80-96); MEAN PLT VOLUME 8.8 fl (7.5-11.1); PLATELET COUNT 148 K/MM3 (134-434); RBC 3.52 M/mm3 (4.00-5.60); RDW 12.7 % (11.9-15.9); WHITE BLOOD COUNT 11.8 K/mm3 (4.0-10.8)
[2018-07-18] MEDS ORDERED: LISINOPRIL 10 MG TABLET (FP) PO SCH (10:00)
[2018-07-18] MEDS ORDERED: metoPROLOL SUCCINATE 25 MG TAB.SR.24H (FP) PO SCH (10:00)
--- NOTE | 2018-07-20 16:03 | PATH ---
Surgical Pathology Report Patient Name: PADMINI LEWIS JR Med. Rec. #: [id number] /Age/Gender: 1980 (Age: 37) / M Account: [id number] Location: [facility] MED-SURG Taken: 07/16/2018 Received: 07/16/2018 Reported: 07/20/2018 Physicians: Napoleon Horton M.D. Specimen(s) Received LEFT FEMORAL HEAD Clinical History Left hip osteoarthritis Final Diagnosis LEFT FEMORAL HEAD, RESECTION: DEGENERATIVE JOINT DISEASE, LEFT HIP. Electronically Signed Marisa Johnston M.D. Gross Description Received in formalin, labeled "left femoral head," is a 5.5 x 5.5 x 4.8 cm. femoral head with a 1.3 cm in length portion of femoral neck attached. The margin of resection is smooth. There is a 3.2 cm greatest dimension area of eburnation present. The remaining articular surface is pino-yellow and focally granular and nodular. The underlying trabecular bone is yellow and hard. A international account representative section is submitted in one cassette, following decalcification. /07/17/2018 [facility]07/17/2018
--- NOTE | 2018-08-06 12:13 | SPEC ---
DATE OF OPERATION: 07/16/2018 PREOPERATIVE DIAGNOSIS: Left hip osteoarthritis. POSTOPERATIVE DIAGNOSIS: Left hip osteoarthritis. PROCEDURE: Left total hip replacement with MAKOplasty robotic navigation. SURGEON: Bolivar Gregory MD FRAUD INVESTIGATOR: HEMAL Nunez ANESTHESIA: Spinal plus sedation. ESTIMATED BLOOD LOSS: 500 mL. COMPLICATIONS: None. DISPOSITION: The patient was transferred to the PACU in stable condition. IMPLANTS USED: Arabella Accolade 2 size 5 femoral component, Arabella Trident 56-mm acetabular component with two acetabular screws, MDM bipolar head ball with inner +8 mm offset femoral head. INDICATIONS: This is a 37-year-old male who presented to the office complaining of severe left hip pain. He was seen and examined by Dr. Gregory and diagnosed with severe left hip osteoarthritis. The patient was initially treated non-operatively with injections, medications, and physical therapy, but continued to have severe pain and ambulatory dysfunction. He was therefore indicated for a left total hip replacement. The risks, benefits, and alternatives to the procedure were explained to the patient in great detail, and the patient elected to proceed with the surgery. DESCRIPTION OF PROCEDURE: On the day of surgery, the patient was taken to the operating room and placed on the OR table. Spinal anesthesia was administered by the anesthesiologist. The patient was then positioned in the lateral decubitus position on the table and all bony prominences were padded. An axillary roll was placed. The operative hip was then prepped and draped in the usual sterile fashion and intravenous antibiotics were given for infection prophylaxis. A surgical time-out was then performed with the team, and the patients identity, procedure, side, availability of implants, and the administration of antibiotics were confirmed. An approximately 15-cm longitudinal incision was made through the skin centered on the greater trochanter of the hip. This dissection was carried down through the subcutaneous tissues to the deep fascia. This fascia was then incised and a Cobra was placed around the inferior femoral neck. Electrocautery was used to reflect the anterior 40% of the gluteus medius and minimus starting at the musculotendinous junction and leaving a cuff for closure. This was reflected to reveal the capsule of the hip joint. An anterior capsulectomy was performed and the femoral head and neck were visualized. Grade 4 changes were noted diffusely throughout the joint. At this point, three small stab incisions were made superior to the main incision along the iliac crest. Three self-drilling Steinmann pins were then placed and the [employer] pelvic array was attached. Reference points on the limb were then entered into the robotic device and the limb length deficiency, offset, and femoral neck resection level were then calculated by the software. The hip was then dislocated with traction and external rotation. An oscillating saw was used to make the femoral neck cut at the level previously templated, and the femoral head was removed. Attention was then turned to the acetabulum. Retractors were then placed around the acetabulum and the labrum was removed. An acetabular checkpoint pin and the [employer] software were used to register the contours of the acetabulum. The acetabulum was then reamed in a single stage to the preoperatively templated size using the [employer] robotic arm. The appropriately sized cup was then impacted and had solid fixation as well as the preset inclination and version of 40 and 20 degrees, respectively. A polyethylene liner was then placed in the cup. Attention was then turned back to the femur, which was externally rotated for improved visualization. A femoral neck elevator was used to present the femoral neck cut, a box osteotome was used to enter the femoral canal, and a canal finder was used to go down the femoral shaft. The Jorge broaches were used sequentially until the optimal scratch fit was achieved. This correlated with the preoperatively templated size. From here, several different offset head and neck configurations were tested until excellent stability and length were obtained. These measurements were quantified using the [employer] software. All trial components were then removed, the femur was copiously irrigated, and the final components were placed. Leg length and stability were checked again and found to be excellent. Irrigation was performed again. Wound closure was started by repairing the abductor muscles with a no. 2 FiberWire stitch in a Krackow configuration passed through bone tunnels in the greater trochanter and tied over a bony bridge. This repair was then reinforced with a 0 V-Loc 180 barbed suture. Next, no. 1 Polysorb and 0 V-Loc 180 were used to close the fascia. The deep subcutaneous tissue was closed with no. 1 Polysorb sutures, and 2-0 Polysorb was used for the superficial subcutaneous tissue. The skin was closed using both 3-0 V-Loc 90 suture in a running subcuticular fashion and SwiftSet skin adhesive. The Jorge array and pins were removed from the iliac crest and the stab incision sites were irrigated and closed with 4-0 Polysorb sutures and SwiftSet skin adhesive. Once this was completed, a sterile dressing was applied. The patient was then awakened and taken to the PACU in stable condition. BOLIVAR GREGORY M.D. TANG/[id number]
== END 2018-07-18 10:40 | disposition home health service (06) | DRG 470 ==
LOC: FM/S 09:01 → UNDOADMIN 09:01
PROVIDERS: ADMIT Student in an Organized Health Care Education/Training Program; ATTEND Student in an Organized Health Care Education/Training Program
PROC: 8E0W0CZ Robotic Assisted Procedure of Trunk Region, Open Approach (ICD-10-PCS; 2018-07-16)
PROC: 0SRB0JA Replacement of Left Hip Joint with Synthetic Substitute, Uncemented, Open Approach (ICD-10-PCS; principal; 2018-07-16 14:01)
DX: M16.12 Unilateral primary osteoarthritis, left hip (principal); K57.92 Diverticulitis of intestine, part unspecified, without perforation or abscess without bleeding; I10 Essential (primary) hypertension; G47.33 Obstructive sleep apnea (adult) (pediatric)
CPT/HCPCS: 36415; 73502-TC-LT-FY; 80048; 85027; 88304-TC; 88311-TC; 94660; 94760; 97116-GP; 97163-GP; J0131; J1100; J7030

== ENCOUNTER 2018-08-18 12:37 | Inpatient (IN) | payer OTHER ==
[2018-08-18] MEDS ORDERED: SODIUM CHLORIDE 1,000 ML IV ONE (13:01)
[2018-08-18] MEDS ORDERED: ONDANSETRON 4 MG/2 ML VIAL IVPUSH ONE (13:01)
[2018-08-18] MEDS ORDERED: ONDANSETRON 4 MG/2 ML VIAL ONE (13:12)
--- NOTE | 2018-08-18 13:16 | PDOC ---
History of Present Illness - General Chief Complaint: Pain Stated Complaint: LEFT LOWER QUADRANT PAIN 6 DAYS AGO Time Seen by Provider: 08/18/18 12:45 History Source: Patient, Old Records Exam Limitations: No Limitations - History of Present Illness Initial Comments: 08/18/18 13:10 37-year-old male with history of diverticulitis (admitted 2 in the past, never operated, has had about 2 bouts per year treated with oral antibiotics other than the 2 admissions, normal colonoscopy on 06/25/18), recent left hip Jorge plasty for severe arthritis presents now with persistent and worsening of left lower quadrant pain. Symptom onset was about 6 days ago, typical dull ache in the left lower quadrant associated with nausea similar to past diverticulitis exacerbations. The patient saw his airset caster 4 days ago, had normal white blood cell, and was started on Augmentin and Flagyl. His symptoms essentially resolved over the weekend, but he presents now with recurrence of left lower quadrant pain and nausea since last night, loose stool, some urinary urgency with defecation, otherwise no constipation/bloody stool/dysuria. No fevers or chills, the pain radiates to the left low back but no flank pain. No night sweats or weight loss No change in his left hip pain since the surgery, he takes pain medications twice daily as prescribed by orthopedics. Denies any excessive alcohol or drug use. Past History - Past Medical History Allergies/Adverse Reactions: Allergies Allergy/AdvReac Type Severity Reaction Status Date / Time ciprofloxacin [From Cipro] Allergy Intermediate Nausea Verified 07/03/18 10:09 ciprofloxacin HCl Allergy Intermediate Nausea Verified 07/03/18 10:09 [From Cipro] Shellfish Allergy Swelling Verified 07/03/18 10:09 Home Medications: Ambulatory Orders Lisinopril [Prinivil] 10 mg PO DAILY 05/02/18 Metoprolol Succinate [Toprol Xl] 25 mg PO DAILY 05/02/18 Ascorbic Acid [Vitamin C -] 500 mg PO BID tablet 07/17/18 Aspirin [ASA -] 325 mg PO DAILY@0800 tablet 07/17/18 Multivitamins [Multivit ([facility] Formulary)] 1 tab PO DAILY tab 07/17/18 Oxycodone HCl/Acetaminophen [Percocet 5-325 mg Tablet] 1 - 2 tab PO Q4H PRN #60 tablet MDD 10 07/17/18 Pantoprazole Sodium [Protonix -] 40 mg PO DAILY #40 tablet.ec 07/17/18 Sennosides/Docusate Sodium [Pericolace -] 1 tablet PO BID tablet 07/17/18 traMADol HCL [Ultram -] 50 mg PO Q4H PRN #42 tablet MDD 6 07/17/18 Amoxicillin/Potassium Clav [Amox-Clav 875-125 mg Tablet] 1 each PO BID 08/18/18 Diclofenac Sodium [Voltaren -] 75 mg PO BID 08/18/18 metroNIDAZOLE [Flagyl -] 500 mg PO TID 08/18/18 Anemia: No Asthma: No Cancer: No Cardiac Disorders: No CVA: No COPD: No CHF: No Dementia: No Diabetes: No GI Disorders: Yes (DIVERTICULITIS) Disorders: No HTN: Yes Hypercholesterolemia: No Liver Disease: No Seizures: No Thyroid Disease: No Other medical history: SLEEP APNEA - Surgical History Abdominal Surgery: No Appendectomy: No Cardiac Surgery: No Cholecystectomy: No Lung Surgery: No Neurologic Surgery: No Orthopedic Surgery: No - Immunization History TDAP Vaccination: No Immunization Up to Date: Yes - Suicide/Smoking/Psychosocial Hx Smoking Status: No Smoking History: Never smoked Have you smoked in the past 12 months: No Number of Cigarettes Smoked Daily: 0 Information on smoking cessation initiated: No Hx Alcohol Use: Yes (SOCIAL) Drug/Substance Use Hx: No Substance Use Type: None Hx Substance Use Treatment: No Review of Systems - Review of Systems Constitutional: No: Chills, Fever, Night Sweats, Unintentional Wgt. Loss Respiratory: No: Cough, Shortness of Breath Cardiac (ROS): No: Chest Pain ABD/GI: Yes: Nausea. No: Constipated, Diarrhea, Rectal Bleeding, Vomiting : Yes: See HPI Musculoskeletal: No: Back Pain All Other Systems: Reviewed and Negative *Physical Exam - Vital Signs Last Vital Signs Temp Pulse Resp BP Pulse Ox 98.5 F 105 H 18 129/69 99 08/18/18 12:38 08/18/18 12:38 08/18/18 12:38 08/18/18 12:38 08/18/18 12:38 - Physical Exam Comments: 08/18/18 13:14 Afebrile, heart rate 95 on my evaluation GENERAL: The patient is awake, alert, and fully oriented, in no acute distress. Obese male, ambulating comfortably. HEAD: Normal with no signs of trauma. EYES: PERRL, EOMI, sclera anicteric, conjunctiva clear with no pallor or jaundice. ENT: oropharynx clear. Moist mucous membranes. NECK: Normal range of motion, supple without lymphadenopathy, JVD, or masses. LUNGS: Breath sounds equal, clear to auscultation bilaterally. No wheeze/ crackles. HEART: Regular rate and rhythm, normal S1 and S2 without murmur or rub. ABDOMEN: Soft/nondistended. BS wnl. Referred pain to the left lower quadrant on palpation of the right lower quadrant, positive guarding in the left lower quadrant, no rebound. No palpable masses. No hepatosplenomegaly. No CVA tenderness. EXTREMITIES: Normal range of motion, no edema. 2+ distal pulses. No cords, erythema, or tenderness. No evidence of infection at the surgical site. NEUROLOGICAL: Cranial nerves II through XII grossly intact. Normal speech, normal gait. PSYCH: Normal mood, normal affect. SKIN: Warm, Dry, no rashes or lesions noted. ED Treatment Course - LABORATORY CBC & Chemistry Diagram: 08/18/18 13:25 08/18/18 13:25 - RADIOLOGY Radiology Studies Ordered: Category Date Time Status ABDOMEN & PELVIS CT WITH CONTR [CT] Stat CT Scan 08/18/18 13:01 Ordered Medical Decision Making - Medical Decision Making 08/18/18 13:16 37-year-old male with history of diverticulitis presents with left lower quadrant pain and tenderness suggestive of recurrence, initially improved but now worsening despite oral antibiotic regimen. Hemodynamically stable and afebrile here. Check labs, urinalysis CT of the abdomen and pelvis to rule out perforation/complication Antiemetics, declines pain medication at this time IV fluid hydration Reassess 08/18/18 15:21 wbc 12.4, labs otherwise wnl except lipase, which is still pending. CTAP pending. received iv fluids and zofran with some relief. 08/18/18 17:00 lipase normal. Feels well other than persistent dull ache in LLQ. CT official read still pending, on my preliminary review there is stranding in the sigmoid region. We will give dose of IV antibiotic, awaiting CAT scan read, obtain GI consultation. 08/18/18 17:12 official reads same, acute diverticulitis without free air/abscess. Dr. Dawson ( patient's GI) called, Dr. Lacy covering. 08/18/18 17:[address] Lacy, agrees needs admission for IV abx given worsening sxs. per records at [facility], Dr. Dawson has recommended surgery referral in the past. Accepted for med/surg by Dr. Menard, signout given to NADIRA Minaya, will consult gen surg. *DC/Admit/Observation/Transfer Diagnosis at time of Disposition: Diverticulitis Qualifiers: Diverticulitis site: large intestine Diverticulitis bleeding: without bleeding Diverticulitis complication: unspecified complication status Qualified Code(s): K57.32 - Diverticulitis of large intestine without perforation or abscess without bleeding - Discharge Dispostion Condition at time of disposition: Stable Decision to Admit order: Yes - Referrals Referrals: Fausto Saeed MD [Primary Care Provider] - - Patient Instructions - Post Discharge Activity
[2018-08-18 13:45] LABS: URINE MUCUS 1+
[2018-08-18 14:43] LABS: HEMOGLOBIN 13.8 GM/dl (11.7-16.9); MEAN PLT VOLUME 8.5 fl (7.5-11.1); RDW 12.7 % (11.9-15.9)
[2018-08-18 14:47] LABS: ALBUMIN 4.3 g/dl (3.4-5.0); ALK PHOS 85 U/L (45-117); ANION GAP 13 MMOL/L (8-16); BILIRUBIN,TOTAL 0.6 mg/dl (0.2-1); BLOOD UREA NITROGEN 13 mg/dl (7-18); CHLORIDE 100 mmol/L (98-107); CO2 26 mmol/L (21-32); GLUCOSE,RANDOM 100 mg/dl (74-106); HEMATOCRIT 41.1 % (35.4-49); MAGNESIUM 1.9 mg/dL (1.8-2.4); MCH 28.9 pg (25.7-33.7); MCHC 33.6 g/dl (32.0-35.9); PLATELET COUNT 249 K/MM3 (134-434); POTASSIUM 4.1 mmol/L (3.5-5.1); RBC 4.78 M/mm3 (4.00-5.60); SGOT/AST 38 U/L (15-37); SGPT/ALT 38 U/L (13-61); SODIUM 139 mmol/L (136-145); TOT PROT 8.1 g/dl (6.4-8.2); WHITE BLOOD COUNT 12.4 K/mm3 (4.0-10.8)
[2018-08-18 16:09] LABS: LIPASE 151 U/L (73-393)
[2018-08-18] MEDS ORDERED: PIPERACILLIN/TAZOB 4.5 GM 4.5 GM in DEXTROSE 5%-WATER 100 ML IVPB ONE (17:02)
[2018-08-18] MEDS ORDERED: PIPERACILLIN/TAZOBACTAM 4.5 GM VIAL IVPB ONE (17:36)
[2018-08-18] MEDS ORDERED: morphine CARPU-JECT 4 MG/1 ML DISP.SYRIN IVPUSH ONE (18:22)
[2018-08-18] MEDS ORDERED: morphine SULFATE 4 MG/ML VIAL ONE (18:38)
--- NOTE | 2018-08-18 19:33 | HP ---
CHIEF COMPLAINT: LLQ pain PCP: HISTORY OF PRESENT ILLNESS: 37-year-old male with recurrent diverticulitis c/o worsening LLQ abdominal pain x1 day, was on Augmentin and metronidazole for the past 4 days prior to that for diverticulitis that his GI doc prescribed him. LLQ pain was sharp, denied fevers, chills. He reported some initial loose stools which improved with Augmentin and metronidazole. Pt reports he had recent colonoscopy which was allegedly wnl. ER course was notable for: (1) IV fluid (2) pip/tazo (3) Recent Travel: no PAST MEDICAL HISTORY: multiple episodes of diverticulitis, htn PAST SURGICAL HISTORY:hip replacement for severe arthritis- 07/16/18 Social History: Smoking: no Alcohol: social Drugs: no Family History: parents of emphysema Allergies ciprofloxacin [From Cipro] Allergy (Intermediate, Verified 07/03/18 10:09) Nausea ciprofloxacin HCl [From Cipro] Allergy (Intermediate, Verified 07/03/18 10:09) Nausea Shellfish Allergy (Verified 07/03/18 10:09) Swelling HOME MEDICATIONS: Home Medications Medication Instructions Recorded Lisinopril [Prinivil] 10 mg PO DAILY 05/02/18 Metoprolol Succinate [Toprol Xl] 25 mg PO DAILY 05/02/18 Ascorbic Acid [Vitamin C -] 500 mg PO BID tablet 07/17/18 Aspirin [ASA -] 325 mg PO DAILY@0800 tablet 07/17/18 Multivitamins [Multivit ([facility] 1 tab PO DAILY tab 07/17/18 Formulary)] Oxycodone HCl/Acetaminophen 1 - 2 tab PO Q4H PRN #60 tablet 07/17/18 [Percocet 5-325 mg Tablet] MDD 10 Pantoprazole Sodium [Protonix -] 40 mg PO DAILY #40 tablet.ec 07/17/18 Sennosides/Docusate Sodium 1 tablet PO BID tablet 07/17/18 [Pericolace -] traMADol HCL [Ultram -] 50 mg PO Q4H PRN #42 tablet MDD 6 07/17/18 Amoxicillin/Potassium Clav 1 each PO BID 08/18/18 [Amox-Clav 875-125 mg Tablet] Diclofenac Sodium [Voltaren -] 75 mg PO BID 08/18/18 metroNIDAZOLE [Flagyl -] 500 mg PO TID 08/18/18 REVIEW OF SYSTEMS CONSTITUTIONAL: Absent: fever, chills, diaphoresis, generalized weakness, malaise, loss of appetite, weight change HEENT: Absent: rhinorrhea, nasal congestion, throat pain, throat swelling, difficulty swallowing, mouth swelling, ear pain, eye pain, visual changes CARDIOVASCULAR: Absent: chest pain, syncope, palpitations, irregular heart rate, lightheadedness , peripheral edema RESPIRATORY: Absent: cough, shortness of breath, dyspnea with exertion, orthopnea, wheezing, stridor, hemoptysis GASTROINTESTINAL: Absent: , abdominal distension, vomiting, diarrhea, constipation, melena, hematochezia present- abdominal pain, nausea, GENITOURINARY: Absent: dysuria, frequency, urgency, hesitancy, hematuria, flank pain, genital pain MUSCULOSKELETAL: Absent: myalgia, arthralgia, joint swelling, back pain, neck pain SKIN: Absent: rash, itching, pallor HEMATOLOGIC/IMMUNOLOGIC: Absent: easy bleeding, easy bruising, lymphadenopathy, frequent infections ENDOCRINE: Absent: unexplained weight gain, unexplained weight loss, heat intolerance, cold intolerance NEUROLOGIC: Absent: headache, focal weakness or paresthesias, dizziness, unsteady gait, seizure, mental status changes, bladder or bowel incontinence PSYCHIATRIC: Absent: anxiety, depression, suicidal or homicidal ideation, hallucinations. PHYSICAL EXAMINATION Vital Signs - 24 hr 08/18/18 08/18/18 12:38 18:44 Temperature 98.5 F Pulse Rate 105 H Pulse Rate [ 96 H Left] Respiratory 18 16 Rate Blood Pressure 129/69 Blood Pressure 129/81 [Right Arm] O2 Sat by Pulse 99 97 Oximetry (%) GENERAL: Awake, alert, and fully oriented, in no acute distress, obese HEAD: Normal with no signs of trauma. EYES: Pupils equal, round and reactive to light, extraocular movements intact, sclera anicteric, conjunctiva clear. No lid lag. EARS, NOSE, THROAT: Ears normal, nares patent, oropharynx clear without exudates. Moist mucous membranes. NECK: Normal range of motion, supple without lymphadenopathy, JVD, or masses. LUNGS: Breath sounds equal, clear to auscultation bilaterally. No wheezes, and no crackles. No accessory muscle use. HEART: Regular rate and rhythm, normal S1 and S2 without murmur, rub or gallop. ABDOMEN: Soft, obese, LLQ tenderness on palpation, no rebound tenderness MUSCULOSKELETAL: Normal range of motion at all joints. No bony deformities or tenderness. No CVA tenderness. UPPER EXTREMITIES: 2+ pulses, warm, well-perfused. No cyanosis. No clubbing. No peripheral edema. LOWER EXTREMITIES: left hip scar s/p hip replacement- healing well NEUROLOGICAL: Cranial nerves II-XII intact. Normal speech. Normal gait. PSYCHIATRIC: Cooperative. Good eye contact. Appropriate mood and affect. SKIN: Warm, dry, normal turgor, no rashes or lesions noted, normal capillary refill. Laboratory Results - last 24 hr 08/18/18 08/18/18 08/18/18 13:15 13:25 13:25 WBC 12.4 H RBC 4.78 Hgb 13.8 Hct 41.1 D MCV 86.0 MCH 28.9 MCHC 33.6 RDW 12.7 Plt Count 249 D MPV 8.5 Absolute Neuts (auto) 10.2 Neutrophils % No Result Required. Lymphocytes % No Result Required. Sodium 139 Potassium 4.1 Chloride 100 Carbon Dioxide 26 Anion Gap 13 BUN 13 Creatinine 1.0 Creat Clearance w eGFR 83.19 Random Glucose 100 Calcium 9.0 Magnesium 1.9 Total Bilirubin 0.6 AST 38 H ALT 38 Alkaline Phosphatase 85 Total Protein 8.1 Albumin 4.3 Lipase 151 Urine Color Yellow Urine Appearance Clear Urine pH 5.5 Urine Protein 2+ H Urine Glucose (UA) Negative Urine Ketones 1+ H Urine Blood Negative Urine Nitrite Negative Urine Bilirubin 1+ H Urine Urobilinogen 0.2 Ur Leukocyte Esterase Trace Urine RBC 0-3 Urine WBC 0-3 Urine Bacteria Few Urine Mucus 1+ Imaging studies reviewed ASSESSMENT/PLAN: #Sepsis secondary to colitis/ diverticulitis. Tachycardia, leukocytosis. Possible resistance of augmentin, flagyl. Anticipate better response to pip/ tazo. CT of abdomen/pelvis is negative for bowel perforation. Lactate is wnl. Pain currently controlled. If diarrhea developed, will order stool for Cdiff. -admit to med/surg -blood cultures x2 -UA -cxr -zosyn 3.37g IV q6hrs -Stool for Cdiff PCR if diarrhea -ID consult -Surgery consult for possible elective partial colectomy -IV fluids -zofran prn for nausea -morphine IV prn for pain -advance diet to clear liquids #HTN -controlled -c/w home dose lisinopril, Toprolol #Left hip replacement -wound healing well -pain management -wound care DVT ppx- heparin sc Visit type - Emergency Visit Emergency Visit: Yes ED Registration Date: 08/18/18 Care time: The patient presented to the Emergency Department on the above date and was hospitalized for further evaluation of their emergent condition. - New Patient This patient is new to me today: Yes Date on this admission: 08/19/18 - Critical Care Critical Care patient: No
[2018-08-18 19:49] LABS: PLATELET ESTIMATE ADEQUATE
[2018-08-18] MEDS ORDERED: ONDANSETRON 4 MG/2 ML VIAL IVPUSH PRN (19:58)
[2018-08-18] MEDS: HEPARIN NA (PORCINE) 5,000 UNITS/ML 1ML VIAL SQ SCH (21:41)
[2018-08-18] MEDS: PANTOPRAZOLE SODIUM 40 MG VIAL IVPUSH SCH (21:41)
[2018-08-18] MEDS: SODIUM CHLORIDE 1,000 ML IV SCH (22:25)
[2018-08-18] MEDS: morphine CARPU-JECT 2 MG/1 ML DISP.SYRIN IVPUSH PRN (22:58)
[2018-08-19] MEDS ORDERED: PIPERACILLIN/TAZOB 3.375 GM 3.375 GM in DEXTROSE 5%-WATER - 50 ML IVPB ONE ×2 (02:38→15:00)
[2018-08-19 02:49] VITALS: BMI 39.8
[2018-08-19] MEDS ORDERED: PIPERACILLIN/TAZOBACTAM 3.375 GM VIAL IVPB ONE ×3 (03:12→21:07)
[2018-08-19] MEDS ORDERED: DEXTROSE 5%-WATER - 50 ML IVPB ONE ×3 (03:12→21:07)
[2018-08-19] MEDS: morphine CARPU-JECT 2 MG/1 ML DISP.SYRIN IVPUSH PRN ×2 (06:58→19:38)
[2018-08-19] MEDS: ASPIRIN 325 MG TABLET PO SCH (08:30)
--- NOTE | 2018-08-19 08:44 | PN ---
Physical Exam: SUBJECTIVE: Patient seen and examined. Still has pain but it is better than yesterday. Had clear liquids for breakfast and lunch. Opposed to NPO status. This is patient's seventh diverticulitis flare since 2012 and his third hospitalization. OBJECTIVE: Vital Signs Period Temp Pulse Resp BP Sys/Howell Pulse Ox Last 24 Hr 97.7 F-98.5 F 83-105 16-18 100-129/56-81 96-99 GENERAL: The patient is awake, alert, and fully oriented, in no acute distress. Ambulating around room. Mildly agitated. LUNGS: Breath sounds equal, clear to auscultation bilaterally, no wheezes, no crackles, no accessory muscle use. HEART: Regular rate and rhythm, S1, S2 ABDOMEN: Soft, nontender, nondistended, normoactive bowel sounds, no guarding, no rebound tenderness LOWER EXTREMITY: 2+ pulses, warm, well-perfused, no edema. NEUROLOGICAL: Cranial nerves II through XII grossly intact. Normal speech, steady gait SKIN: Mildly sweaty Laboratory Results - last 24 hr 08/18/18 08/18/18 08/18/18 13:15 13:25 13:25 WBC 12.4 H RBC 4.78 Hgb 13.8 Hct 41.1 D MCV 86.0 MCH 28.9 MCHC 33.6 RDW 12.7 Plt Count 249 D MPV 8.5 Absolute Neuts (auto) 10.2 Neutrophils % No Result Required. Neutrophils % (Manual) 86.0 H Lymphocytes % No Result Required. Lymphocytes % (Manual) 11.0 Monocytes % (Manual) 3 L Platelet Estimate Adequate Sodium 139 Potassium 4.1 Chloride 100 Carbon Dioxide 26 Anion Gap 13 BUN 13 Creatinine 1.0 Creat Clearance w eGFR 83.19 POC Glucometer Random Glucose 100 Lactic Acid Calcium 9.0 Magnesium 1.9 Total Bilirubin 0.6 AST 38 H ALT 38 Alkaline Phosphatase 85 Total Protein 8.1 Albumin 4.3 Lipase 151 Urine Color Yellow Urine Appearance Clear Urine pH 5.5 Urine Protein 2+ H Urine Glucose (UA) Negative Urine Ketones 1+ H Urine Blood Negative Urine Nitrite Negative Urine Bilirubin 1+ H Urine Urobilinogen 0.2 Ur Leukocyte Esterase Trace Urine RBC 0-3 Urine WBC 0-3 Urine Bacteria Few Urine Mucus 1+ 08/18/18 08/18/18 08/19/18 21:30 22:30 06:41 WBC RBC Hgb Hct MCV MCH MCHC RDW Plt Count MPV Absolute Neuts (auto) Neutrophils % Neutrophils % (Manual) Lymphocytes % Lymphocytes % (Manual) Monocytes % (Manual) Platelet Estimate Sodium Potassium Chloride Carbon Dioxide Anion Gap BUN Creatinine Creat Clearance w eGFR POC Glucometer 106 Random Glucose Lactic Acid 0.8 Calcium Magnesium Total Bilirubin AST ALT Alkaline Phosphatase Total Protein Albumin Lipase Urine Color Yellow Urine Appearance Clear Urine pH 5.5 Urine Protein 1+ H Urine Glucose (UA) Negative Urine Ketones Trace Urine Blood Negative Urine Nitrite Negative Urine Bilirubin 1+ H Urine Urobilinogen 0.2 Ur Leukocyte Esterase Negative Urine RBC 0-2 Urine WBC 0-2 Urine Bacteria Few Urine Mucus Current Medications Generic Name Dose Route Start Last Admin Trade Name Freq PRN Reason Stop Dose Admin Aspirin 325 mg 08/19/18 08:00 08/19/18 08:30 Asa - PO 325 mg DAILY@0800 RACHELLE Administration Heparin Sodium (Porcine) 5,000 unit 08/18/18 22:00 08/19/18 09:36 Heparin - SQ 5,000 unit BID RACHELLE Administration Sodium Chloride 1,000 mls @ 75 mls/hr 08/18/18 20:00 08/18/18 22:25 Normal Saline - IV 75 mls/hr ASDIR RACHELLE Administration Piperacillin Sod/Tazobactam 50 mls @ 100 mls/hr 08/19/18 22:00 Sod 3.375 gm/ Dextrose IVPB Q8H [facility] Protocol Lisinopril 10 mg 08/19/18 10:00 08/19/18 09:35 Prinivil PO 10 mg DAILY RACHELLE Administration Metoprolol Succinate 25 mg 08/19/18 10:00 08/19/18 09:35 Toprol Xl - PO 25 mg DAILY RACHELLE Administration Morphine Sulfate 2 mg 08/18/18 20:14 08/19/18 06:58 Morphine Injection - IVPUSH 2 mg Q4H PRN Administration PAIN LEVEL 6-10 Ondansetron HCl 4 mg 08/18/18 19:58 Zofran Injection IVPUSH Q4H PRN NAUSEA AND/OR VOMITING Pantoprazole Sodium 40 mg 08/18/18 20:15 08/19/18 09:35 Protonix Iv IVPUSH 40 mg DAILY RACHELLE Administration ASSESSMENT/PLAN 37 year-old male with a PMH significant for HTN, sleep apnea, left hip OA s/p left total hip arthroplasty 07/16/18, and recurrent diverticulitis. Admitted for acute diverticulitis. Acute diverticulitis --08/18 CTAP: colitis/acute diverticulitis of proximal and mid sigmoid with significant stranding, no abscess seen; seventh flare since 2012, third hospitalization; is opposed to surgery at this time, wants to wait until next year --was on PO abx prior to admission but pain worsened, +leukocytosis, afebrile --continue Zosyn (day #1) --NPO --surgery consult pending s/p left total hip arthroplasty --healing surgical wound, edges well-approximated, no swelling, erythema, tenderness, peeling steri strips --ambulating well --continue ASA 325mg daily for DVT prophylaxis Hypertension --BP stable --continue Toprol XL, lisinopril Sleep apnea --patient has had observed periods of cessation of breathing and hypoxia during anesthesia, two months ago during colonoscopy, and one month ago during hip replacement; patient to get outpatient workup FEN Fluids: NS@75mL/hr Electrolytes: replete as indicated Nutrition: NPO DVT prophylaxis: ASA 325mg daily, oob, ambulation, SCDs; stop subq heparin because of recent hip replacement Dispo: continues to require inpatient care. Full code. Visit type - Emergency Visit Emergency Visit: Yes ED Registration Date: 08/18/18 Care time: The patient presented to the Emergency Department on the above date and was hospitalized for further evaluation of their emergent condition. - New Patient This patient is new to me today: Yes Date on this admission: 08/19/18 - Critical Care Critical Care patient: No
[2018-08-19 08:51] LABS: HEMATOCRIT 35.6 % (35.4-49); HEMOGLOBIN 11.6 GM/dl (11.7-16.9); MCH 28.3 pg (25.7-33.7); MCHC 32.7 g/dl (32.0-35.9); MEAN CELL VOLUME 86.7 fl (80-96); MEAN PLT VOLUME 8.1 fl (7.5-11.1); PLATELET COUNT 205 K/MM3 (134-434); RBC 4.11 M/mm3 (4.00-5.60); RDW 12.6 % (11.9-15.9); WHITE BLOOD COUNT 8.3 K/mm3 (4.0-10.8)
[2018-08-19 09:35] LABS: CALCIUM 8.6 mg/dl (8.5-10); POTASSIUM 4.3 mmol/L (3.5-5.1)
[2018-08-19] MEDS: PANTOPRAZOLE SODIUM 40 MG VIAL IVPUSH SCH (09:35)
[2018-08-19] MEDS: LISINOPRIL 10 MG TABLET (FP) PO SCH (09:35)
[2018-08-19] MEDS: metoPROLOL SUCCINATE 25 MG TAB.SR.24H (FP) PO SCH (09:35)
[2018-08-19] MEDS: HEPARIN NA (PORCINE) 5,000 UNITS/ML 1ML VIAL SQ SCH (09:36)
--- NOTE | 2018-08-19 10:38 | CONSULT ---
Consult Consult Specialty:: General Surgery Reason for Consultation:: diverticulitis - History of Present Illness Chief Complaint: lower abdominal pain History of Present Illness: 37 yo male PMH obesity, HTN, OA, recurrent diverticulitis (7 episodes, 3 requiring hospitalization) presented with worsening LLQ abdominal pain x1 day. He was on Augmentin and metronidazole for the past 4 days prior to that for diverticulitis that his GI doc prescribed him. LLQ pain was sharp, denied fevers , chills. He reported some initial loose stools which improved with Augmentin and metronidazole. Pt reports he had recent colonoscopy which was allegedly wnl. He also has a plan to do elective colectomy at [facility] in April 2019. We were asked to assess. - History Source History Provided By: Patient, Medical Record Limitations to Obtaining History: No Limitations - Past Medical History Cardio/Vascular: Yes: HTN. No: AFIB Musculoskeletal: Yes: Osteoarthritis - Alcohol/Substance Use Hx Alcohol Use: Yes (SOCIAL) - Smoking History Smoking history: Never smoked Have you smoked in the past 12 months: No Aproximately how many cigarettes per day: 0 Home Medications - Allergies Allergies/Adverse Reactions: Allergies Allergy/AdvReac Type Severity Reaction Status Date / Time ciprofloxacin [From Cipro] Allergy Intermediate Nausea Verified 07/03/18 10:09 ciprofloxacin HCl Allergy Intermediate Nausea Verified 07/03/18 10:09 [From Cipro] Shellfish Allergy Swelling Verified 07/03/18 10:09 - Home Medications Home Medications: Ambulatory Orders Lisinopril [Prinivil] 10 mg PO DAILY 05/02/18 Metoprolol Succinate [Toprol Xl] 25 mg PO DAILY 05/02/18 Ascorbic Acid [Vitamin C -] 500 mg PO BID tablet 07/17/18 Aspirin [ASA -] 325 mg PO DAILY@0800 tablet 07/17/18 Multivitamins [Multivit ([facility] Formulary)] 1 tab PO DAILY tab 07/17/18 Oxycodone HCl/Acetaminophen [Percocet 5-325 mg Tablet] 1 - 2 tab PO Q4H PRN #60 tablet MDD 10 07/17/18 Pantoprazole Sodium [Protonix -] 40 mg PO DAILY #40 tablet.ec 07/17/18 Sennosides/Docusate Sodium [Pericolace -] 1 tablet PO BID tablet 07/17/18 traMADol HCL [Ultram -] 50 mg PO Q4H PRN #42 tablet MDD 6 07/17/18 Amoxicillin/Potassium Clav [Amox-Clav 875-125 mg Tablet] 1 each PO BID 08/18/18 Diclofenac Sodium [Voltaren -] 75 mg PO BID 08/18/18 metroNIDAZOLE [Flagyl -] 500 mg PO TID 08/18/18 Review of Systems - Review of Systems Constitutional: denies: Chills, Fever, Unintentional Wgt. Loss Eyes: denies: Blind Spots, Blurred Vision HENT: denies: Difficult Swallowing, Ear Discharge, Throat Pain Neck: denies: Pain on Movement, Tenderness Cardiovascular: denies: Chest Pain, Edema Respiratory: denies: Cough, SOB Gastrointestinal: reports: Abdominal Pain, Constipation. denies: Bloating Genitourinary: denies: Burning, Discharge, Dysuria Breasts: reports: No Symptoms Reported. denies: Pain Musculoskeletal: reports: Joint Pain Integumentary: denies: Eczema, Erythema Neurological: denies: Seizure, Syncope Endocrine: denies: Unexplained Weight Gain, Unexplained Weight Loss Hematology/Lymphatic: denies: Easily Bruised, Excessive Bleeding Psychiatric: denies: Anxiety, Depression Physical Exam Vital Signs: Vital Signs Temperature 98.8 F 08/19/18 09:14 Pulse Rate 95 H 08/19/18 09:14 Respiratory Rate 18 08/19/18 09:14 Blood Pressure 110/68 08/19/18 09:14 O2 Sat by Pulse Oximetry (%) 95 08/19/18 09:00 Constitutional: Yes: Well Nourished, No Distress, Calm, Obese Eyes: Yes: Conjunctiva Clear, EOM Intact HENT: Yes: Atraumatic, Normocephalic Neck: Yes: Supple, Trachea Midline Cardiovascular: Yes: Regular Rate and Rhythm, S1, S2 Respiratory: Yes: Regular, CTA Bilaterally Gastrointestinal: Yes: Normal Bowel Sounds, Soft, Abdomen, Obese, Tenderness ( LLQ), Tenderness, Rebound. No: Tenderness, Epigastrium, Vomiting ...Rectal Exam: Yes: Sphincter Tone Normal. No: Hemorrhoids/External, Hemorrhoids/Internal, Mass Renal/: No: CVA Tenderness - Left, CVA Tenderness - Right Breast(s): No: Discharge from Nipple, Mass, Nipple Inversion Musculoskeletal: No: Muscle Pain, Muscle Weakness Extremities: No: Cool, Cyanosis Edema: No Peripheral Pulses WNL: Yes Integumentary: No: Incision, Jaundice Neurological: Yes: Alert, Oriented Psychiatric: Yes: Alert, Oriented Labs: CBC, BMP 08/19/18 07:42 08/19/18 07:42 Imaging - Results Cat Scan: Report Reviewed, Image Reviewed (sigmiod diverticulitis, hinchey class 1) Problem List - Problems (1) Diverticulitis Assessment/Plan: 37yo male with MMP recurrent diverticultis, he does not require emergency surgical intervention. He has been counseled that surgery is absolutly indicated at his point. He has a complete followup plan with GI and surgery at [facility]. NPO and IVF hydration Clear liquids should not be advanced until abdominal pain as improved or resolved ID for IV antibiotics and home regimen Adequate analgesia Discharge at the discretion of the hospitalist team Thank you for the opportunity to participate in the care of this patient. Code(s): K57.92 - DVTRCLI OF INTEST, PART UNSP, W/O PERF OR ABSCESS W/O BLEED Qualifiers: Diverticulitis site: large intestine Diverticulitis bleeding: without bleeding Diverticulitis complication: unspecified complication status Qualified Code(s): K57.32 - Diverticulitis of large intestine without perforation or abscess without bleeding (2) Obesity (BMI 30-39.9) Code(s): E66.9 - OBESITY, UNSPECIFIED (3) HTN (hypertension) Code(s): I10 - ESSENTIAL (PRIMARY) HYPERTENSION (4) History of total left hip arthroplasty Code(s): Z96.642 - PRESENCE OF LEFT ARTIFICIAL HIP JOINT (5) Osteoarthritis of left hip Code(s): M16.12 - UNILATERAL PRIMARY OSTEOARTHRITIS, LEFT HIP
--- NOTE | 2018-08-19 14:37 | CON.ID ---
Consult Consult Specialty:: infectious diseases Referred by:: Hospitalist Reason for Consultation:: ac diverticulitis - History of Present Illness Chief Complaint: left lower quadrant abd pain History of Present Illness: 37 yo male PMH obesity, HTN, OA, recurrent diverticulitis (7 episodes, 3 requiring hospitalization) presented with worsening LLQ abdominal pain x1 day. He was on Augmentin and metronidazole for the past 4 days prior to that for diverticulitis that his GI doc prescribed him. LLQ pain was sharp, denied fevers , chills. He reported some initial loose stools which improved with Augmentin and metronidazole. Pt reports he had recent colonoscopy which was allegedly wnl. - History Source History Provided By: Patient Limitations to Obtaining History: No Limitations - Past Medical History Cardio/Vascular: Yes: HTN. No: AFIB Musculoskeletal: Yes: Osteoarthritis - Alcohol/Substance Use Hx Alcohol Use: Yes (SOCIAL) - Smoking History Smoking history: Never smoked Have you smoked in the past 12 months: No Aproximately how many cigarettes per day: 0 Home Medications - Allergies Allergies/Adverse Reactions: Allergies Allergy/AdvReac Type Severity Reaction Status Date / Time ciprofloxacin [From Cipro] Allergy Intermediate Nausea Verified 07/03/18 10:09 ciprofloxacin HCl Allergy Intermediate Nausea Verified 07/03/18 10:09 [From Cipro] Shellfish Allergy Swelling Verified 07/03/18 10:09 - Home Medications Home Medications: Ambulatory Orders RX: Lisinopril [Prinivil] 10 mg PO DAILY 05/02/18 RX: Metoprolol Succinate [Toprol Xl] 25 mg PO DAILY 05/02/18 RX: Ascorbic Acid [Vitamin C -] 500 mg PO BID tablet 07/17/18 RX: Aspirin [ASA -] 325 mg PO DAILY@0800 tablet 07/17/18 RX: Multivitamins [Multivit ([facility] Formulary)] 1 tab PO DAILY tab 07/17/18 RX: Pantoprazole Sodium [Protonix -] 40 mg PO DAILY #40 tablet.ec 07/17/18 RX: Sennosides/Docusate Sodium [Pericolace -] 1 tablet PO BID tablet 07/17/18 RX: traMADol HCL [Ultram -] 50 mg PO Q4H PRN #42 tablet MDD 6 07/17/18 RX: Amoxicillin/Potassium Clav [Amox-Clav 875-125 mg Tablet] 1 each PO BID 08/18 RX: metroNIDAZOLE [Flagyl -] 500 mg PO TID 08/18/18 RX: Pantoprazole Sodium 40 mg PO DAILY #30 tablet. 08/21/18 Review of Systems - Review of Systems Constitutional: reports: No Symptoms Eyes: reports: No Symptoms HENT: reports: No Symptoms Cardiovascular: reports: No Symptoms Respiratory: reports: No Symptoms Gastrointestinal: reports: Abdominal Pain, Diarrhea, Nausea Genitourinary: reports: No Symptoms Musculoskeletal: reports: No Symptoms Integumentary: reports: No Symptoms Neurological: reports: No Symptoms Endocrine: reports: No Symptoms Hematology/Lymphatic: reports: No Symptoms Psychiatric: reports: No Symptoms Physical Exam Vital Signs: Vital Signs Temperature 98.8 F 08/19/18 09:14 Pulse Rate 95 H 08/19/18 09:14 Respiratory Rate 18 08/19/18 09:14 Blood Pressure 110/68 08/19/18 09:14 O2 Sat by Pulse Oximetry (%) 95 08/19/18 09:00 Constitutional: Yes: Well Nourished, Calm, Mild Distress Eyes: Yes: Conjunctiva Clear HENT: Yes: Atraumatic, Normocephalic Neck: Yes: Supple, Trachea Midline Cardiovascular: Yes: Regular Rate and Rhythm Respiratory: Yes: Regular, CTA Bilaterally Gastrointestinal: Yes: Hypoactive Bowel Sounds, Tenderness, Other Musculoskeletal: Yes: WNL Extremities: Yes: WNL Integumentary: Yes: WNL Neurological: Yes: Alert, Oriented Psychiatric: Yes: Alert, Oriented Labs: CBC, BMP 08/19/18 07:42 08/19/18 07:42 Imaging - Results Chest X-ray: Report Reviewed, Image Reviewed Cat Scan: Report Reviewed, Image Reviewed Assessment/Plan ASSESSMENT/PLAN 37 year-old male with a PMH significant for HTN, sleep apnea, left hip OA s/p left total hip arthroplasty 07/16/18, and recurrent diverticulitis. Admitted for acute diverticulitis. Acute diverticulitis left total hip arthroplasty Hypertension Sleep apnea plan abx monitor wbc and fevr monitor dirrhoea hydration rest as per the team
[2018-08-19] MEDS: PIPERACILLIN/TAZOB 3.375 GM 3.375 GM in DEXTROSE 5%-WATER - 50 ML IVPB SCH (21:31)
[2018-08-20] MEDS: SODIUM CHLORIDE 1,000 ML IV SCH (01:00)
[2018-08-20] MEDS ORDERED: PIPERACILLIN/TAZOBACTAM 3.375 GM VIAL IVPB ONE ×3 (05:30→21:05)
[2018-08-20] MEDS ORDERED: DEXTROSE 5%-WATER - 50 ML IVPB ONE ×3 (05:30→21:05)
[2018-08-20] MEDS: PIPERACILLIN/TAZOB 3.375 GM 3.375 GM in DEXTROSE 5%-WATER - 50 ML IVPB SCH ×3 (05:37→21:18)
--- NOTE | 2018-08-20 08:05 | PN ---
Progress Note, Physician History of Present Illness: patient stable improving abd pain better - Current Medication List Current Medications: Active Medications Aspirin (Asa -) 325 mg PO DAILY@0800 [facility] Last Admin: 08/19/18 08:30 Dose: 325 mg Sodium Chloride (Normal Saline -) 1,000 mls @ 75 mls/hr IV ASDIR [facility] Last Admin: 08/20/18 01:00 Dose: 75 mls/hr Piperacillin Sod/Tazobactam (Sod 3.375 gm/ Dextrose) 50 mls @ 100 mls/hr IVPB Q8H [facility]; Protocol Last Admin: 08/20/18 05:37 Dose: 100 mls/hr Lisinopril (Prinivil) 10 mg PO DAILY [facility] Last Admin: 08/19/18 09:35 Dose: 10 mg Metoprolol Succinate (Toprol Xl -) 25 mg PO DAILY [facility] Last Admin: 08/19/18 09:35 Dose: 25 mg Morphine Sulfate (Morphine Injection -) 2 mg IVPUSH Q4H PRN PRN Reason: PAIN LEVEL 6-10 Last Admin: 08/19/18 19:38 Dose: 2 mg Ondansetron HCl (Zofran Injection) 4 mg IVPUSH Q4H PRN PRN Reason: NAUSEA AND/OR VOMITING Pantoprazole Sodium (Protonix Iv) 40 mg IVPUSH DAILY [facility] Last Admin: 08/19/18 09:35 Dose: 40 mg - Objective Vital Signs: Vital Signs Temperature 97.9 F 08/20/18 04:00 Pulse Rate 90 08/20/18 04:00 Respiratory Rate 19 08/20/18 04:00 Blood Pressure 105/63 08/20/18 04:00 O2 Sat by Pulse Oximetry (%) 95 08/20/18 04:00 Constitutional: Yes: Calm, Mild Distress, Obese Cardiovascular: Yes: Regular Rate and Rhythm Respiratory: Yes: Regular, CTA Bilaterally Gastrointestinal: Yes: Hypoactive Bowel Sounds, Tenderness Musculoskeletal: Yes: WNL Extremities: Yes: WNL Neurological: Yes: Alert, Oriented Psychiatric: Yes: Alert, Oriented Assessment/Plan ASSESSMENT/PLAN 37 year-old male with a PMH significant for HTN, sleep apnea, left hip OA s/p left total hip arthroplasty 07/16/18, and recurrent diverticulitis. Admitted for acute diverticulitis. Acute diverticulitis left total hip arthroplasty Hypertension Sleep apnea plan continue abx monitor dirrhoea hydration rest as per the team
[2018-08-20 08:25] LABS: ALBUMIN 3.6 g/dl (3.4-5.0); BILIRUBIN,TOTAL 0.6 mg/dl (0.2-1); CALCIUM 8.7 mg/dl (8.5-10); MAGNESIUM 2.1 mg/dL (1.8-2.4); POTASSIUM 3.8 mmol/L (3.5-5.1); TOT PROT 7.3 g/dl (6.4-8.2)
[2018-08-20 08:35] LABS: BASO % 0.3 % (0-2.0); EOS % 3.1 % (0-4.5); HEMATOCRIT 37.9 % (35.4-49); HEMOGLOBIN 12.4 GM/dl (11.7-16.9); LYMPH % 18.1 % (8-40); MCH 28.4 pg (25.7-33.7); MCHC 32.8 g/dl (32.0-35.9); MEAN CELL VOLUME 86.6 fl (80-96); MEAN PLT VOLUME 8.1 fl (7.5-11.1); NEUT % 72.5 % (42.8-82.8); PLATELET COUNT 234 K/MM3 (134-434); RBC 4.38 M/mm3 (4.00-5.60); RDW 12.7 % (11.9-15.9); WHITE BLOOD COUNT 8.9 K/mm3 (4.0-10.8)
[2018-08-20] MEDS: metoPROLOL SUCCINATE 25 MG TAB.SR.24H (FP) PO SCH (09:47)
[2018-08-20] MEDS: ASPIRIN 325 MG TABLET PO SCH (09:47)
[2018-08-20] MEDS: LISINOPRIL 10 MG TABLET (FP) PO SCH (09:47)
[2018-08-20] MEDS: PANTOPRAZOLE SODIUM 40 MG VIAL IVPUSH SCH (09:48)
--- NOTE | 2018-08-20 12:01 | PN ---
Physical Exam: SUBJECTIVE: Patient seen and examined at bedside. Ambulates around room, RLQ pain is better than yesterday but not completely gone. OBJECTIVE: Vital Signs Period Temp Pulse Resp BP Sys/Howell Pulse Ox Last 24 Hr 97.6 F-98.5 F 80-90 17- 105-120/57-80 95-98 GENERAL: The patient is awake, alert, and fully oriented, in no acute distress. LUNGS: Breath sounds equal, clear to auscultation bilaterally, no wheezes, no crackles, no accessory muscle use. HEART: Regular rate and rhythm, S1, S2 ABDOMEN: Soft, mild RLQ tenderness, nondistended, normoactive bowel sounds, no guarding, no rebound tenderness LOWER EXTREMITY: 2+ pulses, warm, well-perfused, no edema. NEUROLOGICAL: Cranial nerves II through XII grossly intact. Normal speech, steady gait Laboratory Results - last 24 hr 08/19/18 08/20/18 08/20/18 20:17 07:40 07:40 WBC 8.9 RBC 4.38 Hgb 12.4 Hct 37.9 MCV 86.6 MCH 28.4 MCHC 32.8 RDW 12.7 Plt Count 234 MPV 8.1 Absolute Neuts (auto) 6.5 Neutrophils % 72.5 Lymphocytes % 18.1 D Monocytes % 6.0 Eosinophils % 3.1 Basophils % 0.3 Sodium 142 Potassium 3.8 Chloride 99 Carbon Dioxide 28 Anion Gap 15 BUN 10 Creatinine 1.0 Est GFR (CKD-EPI)AfAm 109.40 Est GFR (CKD-EPI)NonAf 94.39 POC Glucometer 101 Random Glucose 102 Calcium 8.7 Magnesium 2.1 Total Bilirubin 0.6 AST 22 ALT 27 Alkaline Phosphatase 67 D Total Protein 7.3 Albumin 3.6 Active Medications Generic Name Dose Route Start Last Admin Trade Name Freq PRN Reason Stop Dose Admin Aspirin 325 mg 08/19/18 08:00 08/20/18 09:47 Asa - PO 325 mg DAILY@0800 RACHELLE Administration Sodium Chloride 1,000 mls @ 75 mls/hr 08/18/18 20:00 08/20/18 01:00 Normal Saline - IV 75 mls/hr ASDIR RACHELLE Administration Piperacillin Sod/Tazobactam 50 mls @ 100 mls/hr 08/19/18 22:00 08/20/18 05:37 Sod 3.375 gm/ Dextrose IVPB 100 mls/hr Q8H RACHELLE Administration Protocol Lisinopril 10 mg 08/19/18 10:00 08/20/18 09:47 Prinivil PO 10 mg DAILY RACHELLE Administration Metoprolol Succinate 25 mg 08/19/18 10:00 08/20/18 09:47 Toprol Xl - PO 25 mg DAILY RACHELLE Administration Morphine Sulfate 2 mg 08/18/18 20:14 08/19/18 19:38 Morphine Injection - IVPUSH 2 mg Q4H PRN Administration PAIN LEVEL 6-10 Ondansetron HCl 4 mg 08/18/18 19:58 Zofran Injection IVPUSH Q4H PRN NAUSEA AND/OR VOMITING Pantoprazole Sodium 40 mg 08/18/18 20:15 08/20/18 09:48 Protonix Iv IVPUSH 40 mg DAILY RACHELLE Administration ASSESSMENT/PLAN 37 year-old male with a PMH significant for HTN, sleep apnea, left hip OA s/p left total hip arthroplasty 07/16/18, and recurrent diverticulitis. Admitted for acute diverticulitis. Acute diverticulitis --08/18 CTAP: colitis/acute diverticulitis of proximal and mid sigmoid with significant stranding, no abscess seen; seventh flare since 2012, third hospitalization; is opposed to surgery at this time, wants to wait until next year --was on PO abx prior to admission but pain worsened, +leukocytosis, afebrile --continue Zosyn (day #2) --tolerating soft diet --seen and evaluated by Dr. Douglas yesterday, patient does not want surgery at this time, plans to do as outpatient in April 2019 s/p left total hip arthroplasty --healing surgical wound, edges well-approximated, no swelling, erythema, tenderness, peeling steri strips --ambulating well --continue ASA 325mg daily for DVT prophylaxis Hypertension --BP stable --continue Toprol XL, lisinopril Sleep apnea --patient has had observed periods of cessation of breathing and hypoxia during anesthesia, two months ago during colonoscopy, and one month ago during hip replacement; patient pursuing outpatient workup FEN Fluids: PO intake adequate Electrolytes: replete as indicated Nutrition: soft diet DVT prophylaxis: ASA 325mg daily, oob, ambulation, SCDs; stop subq heparin because of recent hip replacement Dispo: continues to require inpatient care. Full code. Visit type - Emergency Visit Emergency Visit: Yes ED Registration Date: 08/18/18 Care time: The patient presented to the Emergency Department on the above date and was hospitalized for further evaluation of their emergent condition. - New Patient This patient is new to me today: No - Critical Care Critical Care patient: No
--- NOTE | 2018-08-20 15:40 | PN ---
Progress Note, Physician Chief Complaint: abdominal pain History of Present Illness: 37 yo male PMH obesity, HTN, OA, recurrent diverticulitis (7 episodes, 3 requiring hospitalization) presented with worsening LLQ abdominal pain x1 day. His lower abdominal pain is persistent. He is tolerating clear liquids. - Current Medication List Current Medications: Active Medications Aspirin (Asa -) 325 mg PO DAILY@0800 [facility] Last Admin: 08/20/18 09:47 Dose: 325 mg Piperacillin Sod/Tazobactam (Sod 3.375 gm/ Dextrose) 50 mls @ 100 mls/hr IVPB Q8H [facility]; Protocol Last Admin: 08/20/18 15:12 Dose: 100 mls/hr Lisinopril (Prinivil) 10 mg PO DAILY [facility] Last Admin: 08/20/18 09:47 Dose: 10 mg Metoprolol Succinate (Toprol Xl -) 25 mg PO DAILY [facility] Last Admin: 08/20/18 09:47 Dose: 25 mg Morphine Sulfate (Morphine Injection -) 2 mg IVPUSH Q4H PRN PRN Reason: PAIN LEVEL 6-10 Last Admin: 08/19/18 19:38 Dose: 2 mg Ondansetron HCl (Zofran Injection) 4 mg IVPUSH Q4H PRN PRN Reason: NAUSEA AND/OR VOMITING Pantoprazole Sodium (Protonix Iv) 40 mg IVPUSH DAILY [facility] Last Admin: 08/20/18 09:48 Dose: 40 mg - Objective Vital Signs: Vital Signs Temperature 98.9 F 08/20/18 14:00 Pulse Rate 89 08/20/18 14:00 Respiratory Rate 19 08/20/18 14:00 Blood Pressure 128/73 08/20/18 14:00 O2 Sat by Pulse Oximetry (%) 98 08/20/18 14:00 Constitutional: Yes: Well Nourished, No Distress, Calm, Obese Eyes: Yes: Conjunctiva Clear, EOM Intact HENT: Yes: Atraumatic, Normocephalic Neck: Yes: Supple, Trachea Midline Cardiovascular: Yes: Regular Rate and Rhythm, S1, S2 Respiratory: Yes: Regular, CTA Bilaterally Gastrointestinal: Yes: Normal Bowel Sounds, Soft, Abdomen, Obese, Tenderness. No: Vomiting ...Rectal Exam: Yes: Deferred Genitourinary: No: CVA Tenderness - Left, CVA Tenderness - Right Musculoskeletal: No: Muscle Pain, Muscle Weakness Extremities: No: Cool, Cyanosis Edema: No Peripheral Pulses WNL: Yes Peripheral Pulses: Left Radial: 2+, Right Radial: 2+, Left Doralis Pedis: 2+, Right Dorsalis Pedis: 2+, Left Femoral: 2+, Right Femoral: 2+ Integumentary: No: Incision, Jaundice, Pressure Ulcer Neurological: Yes: Alert, Oriented Psychiatric: Yes: Alert, Oriented Labs: CBC, BMP 08/20/18 07:40 08/20/18 07:40 Problem List - Problems (1) Diverticulitis Assessment/Plan: 37yo male with MMP recurrent diverticultis, he does not require emergency surgical intervention. He has been counseled that surgery is absolutly indicated at his point. He has a complete followup plan with GI and surgery at [facility]. Normal WBC, no fever. IVF hydration Clear liquids should not be advanced until abdominal pain as improved or resolved ID for IV antibiotics and home regimen Adequate analgesia Discharge at the discretion of the hospitalist team Code(s): K57.92 - DVTRCLI OF INTEST, PART UNSP, W/O PERF OR ABSCESS W/O BLEED Qualifiers: Diverticulitis site: large intestine Diverticulitis bleeding: without bleeding Diverticulitis complication: unspecified complication status Qualified Code(s): K57.32 - Diverticulitis of large intestine without perforation or abscess without bleeding (2) Obesity (BMI 30-39.9) Code(s): E66.9 - OBESITY, UNSPECIFIED (3) HTN (hypertension) Code(s): I10 - ESSENTIAL (PRIMARY) HYPERTENSION (4) History of total left hip arthroplasty Code(s): Z96.642 - PRESENCE OF LEFT ARTIFICIAL HIP JOINT (5) Osteoarthritis of left hip Code(s): M16.12 - UNILATERAL PRIMARY OSTEOARTHRITIS, LEFT HIP
--- NOTE | 2018-08-20 17:19 | EKG ---
Test Reason : Blood Pressure : / mmHG Vent. Rate : 087 BPM Atrial Rate : 087 BPM P-R Int : 152 ms QRS Dur : 084 ms QT Int : 370 ms P-R-T Axes : 020 015 017 degrees QTc Int : 445 ms NORMAL SINUS RHYTHM NORMAL ECG WHEN COMPARED WITH ECG OF 03-JUL-2018 10:05, NO SIGNIFICANT CHANGE WAS FOUND Confirmed by ARIANNE STEPHEN MD ([id number]) on 08/20/2018 5:19:24 PM Referred By: Confirmed By:ARIANNE STEPHEN MD
[2018-08-20] MEDS: morphine CARPU-JECT 2 MG/1 ML DISP.SYRIN IVPUSH PRN (19:52)
[2018-08-21] MEDS ORDERED: DEXTROSE 5%-WATER - 50 ML IVPB ONE (05:16)
[2018-08-21] MEDS ORDERED: PIPERACILLIN/TAZOBACTAM 3.375 GM VIAL IVPB ONE (05:16)
[2018-08-21] MEDS: PIPERACILLIN/TAZOB 3.375 GM 3.375 GM in DEXTROSE 5%-WATER - 50 ML IVPB SCH (05:21)
[2018-08-21 06:39] VITALS: TEMP 98.3
[2018-08-21] MEDS: ASPIRIN 325 MG TABLET PO SCH (08:11)
--- NOTE | 2018-08-21 08:13 | PN ---
Progress Note, Physician - Current Medication List Current Medications: Active Medications Aspirin (Asa -) 325 mg PO DAILY@0800 [facility] Last Admin: 08/21/18 08:11 Dose: 325 mg Piperacillin Sod/Tazobactam (Sod 3.375 gm/ Dextrose) 50 mls @ 100 mls/hr IVPB Q8H [facility]; Protocol Last Admin: 08/21/18 05:21 Dose: 100 mls/hr Lisinopril (Prinivil) 10 mg PO DAILY [facility] Last Admin: 08/20/18 09:47 Dose: 10 mg Metoprolol Succinate (Toprol Xl -) 25 mg PO DAILY [facility] Last Admin: 08/20/18 09:47 Dose: 25 mg Morphine Sulfate (Morphine Injection -) 2 mg IVPUSH Q4H PRN PRN Reason: PAIN LEVEL 6-10 Last Admin: 08/20/18 19:52 Dose: 2 mg Ondansetron HCl (Zofran Injection) 4 mg IVPUSH Q4H PRN PRN Reason: NAUSEA AND/OR VOMITING Pantoprazole Sodium (Protonix Iv) 40 mg IVPUSH DAILY [facility] Last Admin: 08/20/18 09:48 Dose: 40 mg - Objective Vital Signs: Vital Signs Temperature 98.3 F 08/21/18 06:00 Pulse Rate 90 08/21/18 06:00 Respiratory Rate 18 08/21/18 06:00 Blood Pressure 115/74 08/21/18 06:00 O2 Sat by Pulse Oximetry (%) 100 08/21/18 06:00 Labs: CBC, BMP 08/20/18 07:40 08/20/18 07:40 Problem List - Problems (1) Diverticulitis Code(s): K57.92 - DVTRCLI OF INTEST, PART UNSP, W/O PERF OR ABSCESS W/O BLEED Qualifiers: Diverticulitis site: large intestine Diverticulitis bleeding: without bleeding Diverticulitis complication: unspecified complication status Qualified Code(s): K57.32 - Diverticulitis of large intestine without perforation or abscess without bleeding (2) Obesity (BMI 30-39.9) Code(s): E66.9 - OBESITY, UNSPECIFIED (3) HTN (hypertension) Code(s): I10 - ESSENTIAL (PRIMARY) HYPERTENSION (4) History of total left hip arthroplasty Code(s): Z96.642 - PRESENCE OF LEFT ARTIFICIAL HIP JOINT (5) Osteoarthritis of left hip Code(s): M16.12 - UNILATERAL PRIMARY OSTEOARTHRITIS, LEFT HIP
[2018-08-21 09:31] VITALS: BP 113/75
[2018-08-21] MEDS: LISINOPRIL 10 MG TABLET (FP) PO SCH (09:55)
[2018-08-21] MEDS: metoPROLOL SUCCINATE 25 MG TAB.SR.24H (FP) PO SCH (09:55)
[2018-08-21] MEDS: PANTOPRAZOLE SODIUM 40 MG VIAL IVPUSH SCH (09:55)
--- NOTE | 2018-08-21 10:17 | DS ---
Physical Exam: SUBJECTIVE: Patient seen and examined. Minimal LLQ pain with movement. Tolerating regular food, no nausea, vomiting. No diarrhea. OBJECTIVE: Vital Signs Period Temp Pulse Resp BP Sys/Howell Pulse Ox Last 24 Hr 97.7 F-98.9 F 80-106 - 101-128/62-75 96-100 PHYSICAL EXAM GENERAL: The patient is awake, alert, and fully oriented, in no acute distress. LUNGS: Breath sounds equal, clear to auscultation bilaterally, no wheezes, no crackles, no accessory muscle use. HEART: Regular rate and rhythm, S1, S2 ABDOMEN: Soft, mild RLQ tenderness, nondistended, normoactive bowel sounds, no guarding, no rebound tenderness LOWER EXTREMITY: 2+ pulses, warm, well-perfused, no edema. NEUROLOGICAL: Cranial nerves II through XII grossly intact. Normal speech, steady gait LAB CBCD WBC 8.9 K/mm3 (4.0-10.8) 08/20/18 07:40 RBC 4.38 M/mm3 (4.00-5.60) 08/20/18 07:40 Hgb 12.4 GM/dl (11.7-16.9) 08/20/18 07:40 Hct 37.9 % (35.4-49) 08/20/18 07:40 MCV 86.6 fl (80-96) 08/20/18 07:40 MCHC 32.8 g/dl (32.0-35.9) 08/20/18 07:40 RDW 12.7 % (11.9-15.9) 08/20/18 07:40 Plt Count 234 K/MM3 (134-434) 08/20/18 07:40 MPV 8.1 fl (7.5-11.1) 08/20/18 07:40 CMP Sodium 142 mmol/L (136-145) 08/20/18 07:40 Potassium 3.8 mmol/L (3.5-5.1) 08/20/18 07:40 Chloride 99 mmol/L (98-107) 08/20/18 07:40 Carbon Dioxide 28 mmol/L (21-32) 08/20/18 07:40 Anion Gap 15 MMOL/L (8-16) 08/20/18 07:40 BUN 10 mg/dl (7-18) 08/20/18 07:40 Creatinine 1.0 mg/dl (0.55-1.3) 08/20/18 07:40 Creat Clearance w eGFR 83.19 (>60) 08/18/18 13:25 Calcium 8.7 mg/dl (8.5-10) 08/20/18 07:40 Total Bilirubin 0.6 mg/dl (0.2-1) 08/20/18 07:40 AST 22 U/L (15-37) 08/20/18 07:40 ALT 27 U/L (13-61) 08/20/18 07:40 Alkaline Phosphatase 67 U/L (45-117) D 08/20/18 07:40 Total Protein 7.3 g/dl (6.4-8.2) 08/20/18 07:40 Albumin 3.6 g/dl (3.4-5.0) 08/20/18 07:40 HOSPITAL COURSE: Date of Admission:08/18/18 Date of Discharge: 08/21/18 Pre hospital course 37-year-old male with recurrent diverticulitis c/o worsening LLQ abdominal pain x1 day, was on Augmentin and metronidazole for the past 4 days prior to that for diverticulitis that his GI doc prescribed him. LLQ pain was sharp, denied fevers, chills. He reported some initial loose stools which improved with Augmentin and metronidazole. Pt reports he had recent colonoscopy which was allegedly wnl. ER course (1) IV fluid (2) pip/tazo Subsequent hospital course 37 year-old male with a PMH significant for HTN, sleep apnea, left hip OA s/p left total hip arthroplasty 07/16/18, and recurrent diverticulitis. Admitted for acute diverticulitis. Acute diverticulitis --08/18 CTAP: colitis/acute diverticulitis of proximal and mid sigmoid with significant stranding, no abscess seen; seventh flare since 2012, third hospitalization --was on PO abx prior to admission but pain worsened, +leukocytosis, afebrile --treated with Zosyn x 3 days; discharged with instructions to complete PO antibiotics previously described; 10 days total treatment --seen and evaluated by Dr. Douglas, patient does not want surgery at this time, plans to do as outpatient in April 2019 s/p left total hip arthroplasty --healing surgical wound, edges well-approximated, no swelling, erythema, tenderness, peeling steri strips --continue ASA 325mg daily for DVT prophylaxis, f/u ortho Hypertension --BP stable --continued Toprol XL, lisinopril Sleep apnea --patient has had observed periods of cessation of breathing and hypoxia during anesthesia, two months ago during colonoscopy, and one month ago during hip replacement; patient pursuing outpatient workup Minutes to complete discharge: 35 Discharge Summary Reason For Visit: DIVERTICULITIS OF INTESTINE Current Active Problems Diverticulitis (Acute) Obesity (BMI 30-39.9) (Acute) Condition: Stable - Instructions Diet, Activity, Other Instructions: You should finish the antibiotic medication previously prescribed: augmentin and metronidazole/flagyl. A prescription has been sent to your pharmacy for nystatin suspension. Take this medication as directed. You should follow up with your primary care provider on Friday. Referrals: Fausto Saeed MD [Primary Care Provider] - Disposition: HOME - Home Medications Comprehensive Discharge Medication List: Ambulatory Orders Lisinopril [Prinivil] 10 mg PO DAILY 05/02/18 Metoprolol Succinate [Toprol Xl] 25 mg PO DAILY 05/02/18 Ascorbic Acid [Vitamin C -] 500 mg PO BID tablet 07/17/18 Aspirin [ASA -] 325 mg PO DAILY@0800 tablet 07/17/18 Multivitamins [Multivit ([facility] Formul[facility])] 1 tab PO DAILY tab 07/17/18 Pantoprazole Sodium [Protonix -] 40 mg PO DAILY #40 tablet.ec 07/17/18 Sennosides/Docusate Sodium [Pericolace -] 1 tablet PO BID tablet 07/17/18 traMADol HCL [Ultram -] 50 mg PO Q4H PRN #42 tablet MDD 6 07/17/18 Amoxicillin/Potassium Clav [Amox-Clav 875-125 mg Tablet] 1 each PO BID 08/18/18 metroNIDAZOLE [Flagyl -] 500 mg PO TID 08/18/18 Nystatin/Dpha/Lido/Sucrafate [Nystatin Mouth Rinse *Df Formula*] 5 ml MM Q6HPO # 1 bottle 08/21/18 This patient is new to me today: No Emergency Visit: Yes ED Registration Date: 08/18/18 Care time: The patient presented to the Emergency Department on the above date and was hospitalized for further evaluation of their emergent condition. Critical Care patient: No - Discharge Referral Referred to [facility] Med P.C.: No
[2018-08-21 10:33] VITALS: PULSE 91
== END 2018-08-21 10:55 | disposition home or self-care (01) | DRG 392 ==
LOC: FER 12:37 → FM/S 19:52
PROVIDERS: ATTEND Nurse Practitioner Acute Care
DX: K57.32 Diverticulitis of large intestine without perforation or abscess without bleeding (principal); I10 Essential (primary) hypertension; E66.9 Obesity, unspecified; Z68.39 Body mass index [BMI] 39.0-39.9, adult; G47.30 Sleep apnea, unspecified; Z96.642 Presence of left artificial hip joint; M19.90 Unspecified osteoarthritis, unspecified site
CPT/HCPCS: 36415; 71045-TC-FY; 74177-TC; 80048; 80053; 81003; 81015; 82962; 83605; 83690; 83735; 85025; 85027; 87040; 93005; 99282-25; J1644; J7030

== ENCOUNTER 2020-04-05 17:45 | Emergency (ER) | payer OTHER ==
[2020-04-05 18:19] VITALS: BP 142/79; PULSE 97; BMI 43.0
[2020-04-05] MEDS ORDERED: ACETAMINOPHEN 325 MG TABLET (FP) PO ONE (18:25)
[2020-04-05] MEDS ORDERED: IBUPROFEN 600 MG TABLET (FP) PO ONE ×2 (18:26→18:27)
[2020-04-05] MEDS ORDERED: ACETAMINOPHEN 325 MG TABLET (FP) ONE (18:27)
[2020-04-05 19:09] VITALS: TEMP 100.3
== END 2020-04-05 19:26 | disposition home or self-care (01) ==
LOC: FER 17:45
DX: U07.1 COVID-19 (principal)
CPT/HCPCS: 71045-TC-FY; 99284-25; C9803; U0003

== ENCOUNTER 2020-04-07 15:05 | Emergency (ER) | payer OTHER ==
[2020-04-07 15:39] VITALS: BP 108/60; BMI 43.0
[2020-04-07] MEDS ORDERED: ALBUTEROL SO4 HFA INHALER IH ONE ×2 (15:57→16:01)
[2020-04-07] MEDS ORDERED: ACETAMINOPHEN 500 MG TABLET (FP) PO ONE (15:58)
[2020-04-07] MEDS ORDERED: ACETAMINOPHEN 500 MG TABLET (FP) ONE (16:01)
[2020-04-07] MEDS ORDERED: FAMOTIDINE 10 MG TABLET PO ONE (16:05)
[2020-04-07] MEDS ORDERED: FAMOTIDINE 20 MG TABLET PO ONE (16:06)
[2020-04-07] MEDS ORDERED: FAMOTIDINE 20 MG TABLET ONE (16:07)
[2020-04-07 16:39] VITALS: PULSE 102; TEMP 99.6
== END 2020-04-07 16:55 | disposition home or self-care (01) ==
LOC: FER 15:05
DX: U07.1 COVID-19 (principal)
CPT/HCPCS: 99283-25